=== PATIENT | male | born 1940 | race Caucasian/White ===

== ENCOUNTER 2017-09-14 09:39 | Emergency (ER) | payer MEDICARE, OTHER ==
--- NOTE | 2017-09-14 10:48 | EDM.PDOC ---
ED HPI GENERAL MEDICAL PROBLEM - General Chief Complaint: Respiratory Problem Stated Complaint: SOB/ISSUES SLEEPING Time Seen by Provider: 09/14/17 10:02 Source of Information: Reports: Patient, Family History Limitations: Reports: No Limitations - History of Present Illness INITIAL COMMENTS - FREE TEXT/NARRATIVE: This patient and his are here with a couple of complaints. The patient says that he occasionally gets a little bit of shortness of breath with exertion but otherwise he's okay. He is able to sleep supine and rarely has any kind of swelling in his legs. He does get up at night 5-6 times to urinate and says he usually goes at least a half a cup or better each time. He feels like he empties his bladder okay he denies any edema. There is no burning on urination. He does take tamsulosin. He has a implanted defibrillator. His says that at night when he sleeping he breathes funny. She said it's like he gas several times and then seems to take a full breath afterwards. He sleeps with his mouth open a little bit and this causes him to drool so he actually has a washcloth he keeps coming like at the corner of his mouth to keep from drooling. He had a sleep study along time ago and then was on some kind of apnea machine or see Pap or something. She said that however just a change in his pillow habits resolved the problem. - Related Data Allergies Allergy/AdvReac Type Severity Reaction Status Date / Time clonidine Allergy Unknown Rash Verified 09/14/17 09:50 lisinopril Allergy Unknown Rash Verified 09/14/17 09:50 Home Meds: Home Meds Carvedilol [Coreg] 12.5 mg PO BID 12/22/13 [History] Simvastatin [Zocor] 10 mg PO BEDTIME 12/22/13 [History] Spironolactone [Aldactone] 25 mg PO DAILY 12/22/13 [History] Tamsulosin [Tamsulosin 24 Hr] 0.4 mg PO BEDTIME 12/22/13 [History] Warfarin [Coumadin] 2.5 mg PO DAILY 12/22/13 [History] hydrALAZINE [Apresoline] 10 mg PO DAILY 12/22/13 [History] metFORMIN [metFORMIN XR] 500 mg PO BEDTIME 12/22/13 [History] traMADol [Ultram] 50 mg PO Q8HR PRN 12/22/13 [History] Amiodarone [Pacerone] 200 mg PO DAILY 09/14/17 [History] Terbinafine HCl 250 mg PO DAILY 09/14/17 [History] Past Medical History HEENT History: Reports: Hard of Hearing, Impaired Vision Cardiovascular History: Reports: High Cholesterol, Hypertension, [place], Other (See Below) Other Cardiovascular History: IMplanted defibulator Genitourinary History: Reports: Urinary Incontinence, Other (See Below) Other Genitourinary History: frequency Musculoskeletal History: Reports: Arthritis, Fracture Other Musculoskeletal History: l tibia Endocrine/Metabolic History: Reports: Diabetes, Type II - Infectious Disease History Infectious Disease History: Reports: Chicken Pox, Measles, Mumps, Shingles - Past Surgical History HEENT Surgical History: Reports: Cataract Surgery Cardiovascular Surgical History: Reports: Coronary Artery Stent GI Surgical History: Reports: Colonoscopy Musculoskeletal Surgical History: Reports: Knee Replacement Social & Family History - Tobacco Use Smoking Status *Q: Former Smoker Years of Tobacco use: 30 Packs/Tins Daily: 1 Used Tobacco, but Quit: Yes Month/Year Tobacco Last Used: 2011 - Caffeine Use Caffeine Use: Reports: Coffee, Soda, Tea - Alcohol Use Days Per Week of Alcohol Use: 2 Number of Drinks Per Day: 2 Total Drinks Per Week: 4 - Recreational Drug Use Recreational Drug Use: No ED ROS GENERAL - Review of Systems Review Of Systems: ROS reveals no pertinent complaints other than HPI. ED EXAM, GENERAL - Physical Exam Exam: See Below Exam Limited By: No Limitations General Appearance: Alert, WD/WN, No Apparent Distress Eye Exam: Bilateral Eye: Normal Inspection Nose: Normal Inspection (He seems to breathe normally through the nose) Throat/Mouth: Normal Inspection Head: Atraumatic Neck: Normal Inspection Respiratory/Chest: Lungs Clear, Normal Breath Sounds Cardiovascular: Normal Peripheral Pulses, Regular Rate, Rhythm Extremities: No Pedal Edema Neurological: Alert, Oriented Psychiatric: Normal Affect Skin Exam: Warm, Dry Course - Vital Signs Last Recorded V/S: Last Vital Signs Temp 36.0 C 09/14/17 10:13 Pulse 71 09/14/17 10:13 Resp 16 09/14/17 10:13 BP 188/94 H 09/14/17 10:13 Pulse Ox 98 09/14/17 10:13 Departure - Departure Time of Disposition: 10:43 Disposition: Home, Self-Care 01 Condition: Fair Clinical Impression: Sleep disturbance, unspecified, Nocturia - Discharge Information Referrals: David Vigil MD [Primary Care Provider] - Additional Instructions: Your symptoms sound like they could be do to obstructive sleep apnea. Your need to sleep with your mouth open indicates that you may be having some difficulty breathing through your nose. This can cause enough obstruction to cause sleep apnea. For some people this can be alleviated using the nasal strips such as Breathe Right nasal strips. I recommend you give those a try. Your will know whether or not they will work. If that doesn't solve the problem then I recommend a sleep study. This scan of your bladder showed only 59 mL so it appears you're emptying the bladder normally.
== END 2017-09-14 11:08 | disposition home or self-care (01) ==
LOC: JP.ED 09:39
DX: G47.9 Sleep disorder, unspecified (principal); R35.1 Nocturia; I10 Essential (primary) hypertension; E78.00 Pure hypercholesterolemia, unspecified; I25.2 Old myocardial infarction; E11.9 Type 2 diabetes mellitus without complications; Z88.8 Allergy status to other drugs, medicaments and biological substances; Z79.899 Other long term (current) drug therapy; Z79.01 Long term (current) use of anticoagulants; Z79.84 Long term (current) use of oral hypoglycemic drugs; Z87.891 Personal history of nicotine dependence
CPT/HCPCS: 99282; 99285

== ENCOUNTER 2020-02-21 17:47 | Emergency (ER) | payer MEDICARE, OTHER ==
[2020-02-21] MEDS ORDERED: Sodium Chloride 0.9% 10 ML Syringe FLUSH PRN (17:59)
--- NOTE | 2020-02-21 18:38 | EDM.PDOC ---
ED HPI GENERAL MEDICAL PROBLEM - General Chief Complaint: General Stated Complaint: POSSIBLE STROKE Time Seen by Provider: 02/21/20 18:20 Source of Information: Reports: Patient, Family, Old Records, RN History Limitations: Reports: No Limitations - History of Present Illness INITIAL COMMENTS - FREE TEXT/NARRATIVE: 79 [facility] patient is brought in by his for weakness. He began to get weak a couple days ago, but it was not a significant issue until today. Has not shared this problem with his provider(s). Also occasionally sees Dr. Vigil. His mentions that he has had a couple of bouts of urinary incontinence today that is not normal for him. No fever, new pain, cough, SOB, dysuria, or change in bowels. Onset: Gradual Duration: Day(s):, Getting Worse Location: Reports: Generalized Quality: Reports: Other (no new pain reports) Severity: Moderate (weakness) Improves with: Reports: None Worsens with: Reports: Other (time) Context: Reports: Other (See HPI) Associated Symptoms: Reports: Other (urinary incontinence) Treatments [employer] MANAGER: Reports: Other (see below) (none) - Related Data Allergies Allergy/AdvReac Type Severity Reaction Status Date / Time clonidine Allergy Unknown Rash Verified 02/21/20 18:12 lisinopril Allergy Unknown Rash Verified 02/21/20 18:12 Home Meds: Home Meds Simvastatin [Zocor] 10 mg PO BEDTIME 12/22/13 [History] Spironolactone [Aldactone] 25 mg PO DAILY 12/22/13 [History] Tamsulosin [Tamsulosin 24 Hr] 0.4 mg PO BID 12/22/13 [History] Warfarin [Coumadin] 2.5 mg PO DAILY 12/22/13 [History] carvediloL [Coreg] 25 mg PO BID 12/22/13 [History] hydrALAZINE [Apresoline] 10 mg PO DAILY 12/22/13 [History] metFORMIN [metFORMIN XR] 500 mg PO DAILY 12/22/13 [History] Amiodarone [Pacerone] 200 mg PO BID 09/14/17 [History] Isosorbide Mononitrate [Imdur] 1 tab PO DAILY 02/21/20 [History] Past Medical History HEENT History: Reports: Hard of Hearing, Impaired Vision Cardiovascular History: Reports: High Cholesterol, Hypertension, [place], Other (See Below) Other Cardiovascular History: IMplanted defibulator Genitourinary History: Reports: Urinary Incontinence, Other (See Below) Other Genitourinary History: frequency Musculoskeletal History: Reports: Arthritis, Fracture Other Musculoskeletal History: l tibia Endocrine/Metabolic History: Reports: Diabetes, Type II - Infectious Disease History Infectious Disease History: Reports: Chicken Pox, Measles, Mumps, Shingles - Past Surgical History HEENT Surgical History: Reports: Cataract Surgery Cardiovascular Surgical History: Reports: Coronary Artery Stent GI Surgical History: Reports: Colonoscopy Musculoskeletal Surgical History: Reports: Knee Replacement Social & Family History - Tobacco Use Smoking Status *Q: Never Smoker - Caffeine Use Caffeine Use: Reports: Coffee, Soda, Tea ED ROS GENERAL - Review of Systems Review Of Systems: See Below Constitutional: Reports: Weakness (generalized) HEENT: Reports: No Symptoms Respiratory: Reports: No Symptoms Cardiovascular: Reports: No Symptoms Endocrine: Reports: No Symptoms GI/Abdominal: Reports: No Symptoms : Reports: Incontinence, Urgency. Denies: Dysuria Musculoskeletal: Reports: No Symptoms Skin: Reports: No Symptoms Neurological: Reports: No Symptoms ED EXAM, GENERAL - Physical Exam Exam: See Below Exam Limited By: No Limitations General Appearance: Alert, WD/WN, No Apparent Distress Eye Exam: Bilateral Eye: Conjunctival Injection, EOMI, PERRL Ears: Normal External Exam, Normal Canal, Hearing Grossly Normal, Normal TMs Ear Exam: Bilateral Ear: Auricle Normal, Canal Normal, TM normal Nose: Normal Inspection, No Blood Throat/Mouth: Normal Inspection, Normal Lips, Normal Oropharynx, Normal Voice, No Airway Compromise Head: Atraumatic, Normocephalic Neck: Normal Inspection Respiratory/Chest: No Respiratory Distress, Lungs Clear, Normal Breath Sounds, No Accessory Muscle Use Cardiovascular: Regular Rate, Rhythm. No: No Edema (trace pitting edema to both LE's below the knees(not new). ) GI/Abdominal: Normal Bowel Sounds, Soft, Non-Tender, No Distention, Other (rectal exam shows quite a bit of soft, brown stool in rectum. ) (Male) Exam: Other (no palpable bladder distention. ) Back Exam: Normal Inspection. No: CVA Tenderness (R), CVA Tenderness (L) Extremities: Normal Inspection, Normal Range of Motion, Non-Tender, No Pedal Edema Neurological: Alert, Oriented, CN II-XII Intact, Normal Cognition, No Motor/Sensory Deficits. No: Inattentive, Confused, Disoriented, Slow to Respond, Unresponsive, Abnormal Reflexes, Sensory/Motor Deficit Psychiatric: Normal Affect, Normal Mood Skin Exam: Warm, Dry, Intact, Normal Color, No Rash Course - Vital Signs Text/Narrative:: post-void bladder scan 132 ml Last Recorded V/S: Last Vital Signs Temp 36.7 C 02/21/20 18:20 Pulse 53 L 02/21/20 19:20 Resp 17 02/21/20 19:20 BP 140/60 02/21/20 19:20 Pulse Ox 90 L 02/21/20 18:20 - Orders/Labs/Meds Orders: Active Orders 24 hr Category Date Time Status Bladder Scan [RC] ASDIRECTED Care 02/21/20 18:24 Active Cardiac Monitoring [RC] .As Directed Care 02/21/20 17:58 Active Sodium Chloride 0.9% [Saline Flush] Med 02/21/20 17:59 Active 10 ml FLUSH ASDIRECTED PRN Saline Lock Insert [OM.PC] Routine Oth 02/21/20 17:59 Ordered Medication Orders Sodium Chloride (Saline Flush) 10 ml FLUSH ASDIRECTED PRN PRN Reason: Keep Vein Open Last Admin: 02/21/20 18:10 Dose: 10 ml Documented by: RANDELL Labs: Laboratory Tests 02/21/20 02/21/20 02/21/20 Range/Units 18:13 18:13 18:13 WBC 7.2 (4.5-11.0) K/uL RBC 3.51 L (4.30-5.90) M/uL Hgb 9.4 L D (12.0-15.0) g/dL Hct 31.2 L (40.0-54.0) % MCV 89 (80-98) fL MCH 27 (27-31) pg MCHC 30 L (32-36) % Plt Count 228 (150-400) K/uL PT 19.0 H (9.5-12.0) sec INR 1.76 H D (0.80-1.20) Sodium 140 (140-148) mmol/L Potassium 4.3 (3.6-5.2) mmol/L Chloride 105 (100-108) mmol/L Carbon Dioxide 24 (21-32) mmol/L Anion Gap 10.9 (5.0-14.0) mmol/L BUN 24 H (7-18) mg/dL Creatinine 1.4 H (0.8-1.3) mg/dL Est Cr Clr Drug Dosing 40.00 mL/min Estimated GFR (MDRD) 49 L (>60) Glucose 117 H (74-106) mg/dL Calcium 8.3 L (8.5-10.1) mg/dL Troponin I < 0.017 (0.000-0.056) ng/mL Urine Color (YELLOW) Urine Appearance (CLEAR) Urine pH (5.0-8.0) Ur Specific [place] (1.008-1.030) Urine Protein (NEGATIVE) mg/dL Urine Glucose (UA) (NEGATIVE) mg/dL Urine Ketones (NEGATIVE) mg/dL Urine Occult Blood (NEGATIVE) Urine Nitrite (NEGATIVE) Urine Bilirubin (NEGATIVE) Urine Urobilinogen (0.2-1.0) EU/dL Ur Leukocyte Esterase (NEGATIVE) Urine RBC (0-5) Urine WBC (0-5) Urine Bacteria 02/21/20 Range/Units 18:57 WBC (4.5-11.0) K/uL RBC (4.30-5.90) M/uL Hgb (12.0-15.0) g/dL Hct (40.0-54.0) % MCV (80-98) fL MCH (27-31) pg MCHC (32-36) % Plt Count (150-400) K/uL PT (9.5-12.0) sec INR (0.80-1.20) Sodium (140-148) mmol/L Potassium (3.6-5.2) mmol/L Chloride (100-108) mmol/L Carbon Dioxide (21-32) mmol/L Anion Gap (5.0-14.0) mmol/L BUN (7-18) mg/dL Creatinine (0.8-1.3) mg/dL Est Cr Clr Drug Dosing mL/min Estimated GFR (MDRD) (>60) Glucose (74-106) mg/dL Calcium (8.5-10.1) mg/dL Troponin I (0.000-0.056) ng/mL Urine Color Yellow (YELLOW) Urine Appearance Clear (CLEAR) Urine pH 6.0 (5.0-8.0) Ur Specific [place] 1.015 (1.008-1.030) Urine Protein Negative (NEGATIVE) mg/dL Urine Glucose (UA) Negative (NEGATIVE) mg/dL Urine Ketones Negative (NEGATIVE) mg/dL Urine Occult Blood Trace-intact H (NEGATIVE) Urine Nitrite Negative (NEGATIVE) Urine Bilirubin Negative (NEGATIVE) Urine Urobilinogen 0.2 (0.2-1.0) EU/dL Ur Leukocyte Esterase Negative (NEGATIVE) Urine RBC Not seen (0-5) Urine WBC Not seen (0-5) Urine Bacteria Not seen Meds: Medications Generic Name Dose Route Start Last Admin Trade Name Freq PRN Reason Stop Dose Admin Sodium Chloride 10 ml 02/21/20 17:59 02/21/20 18:10 Saline Flush FLUSH 10 ml ASDIRECTED PRN Administration Keep Vein Open Discontinued Medications Generic Name Dose Route Start Last Admin Trade Name Freq PRN Reason Stop Dose Admin Lactated Ringer's 1,000 mls @ 1,000 mls/hr 02/21/20 18:59 02/21/20 19:09 Ringers, Lactated IV 02/21/20 19:58 1,000 mls/hr BOLUS ONE Administration Warfarin Sodium 5 mg 02/21/20 19:05 02/21/20 19:14 Coumadin PO 02/21/20 19:06 5 mg ONETIME ONE Administration - Re-Assessments/Exams Free Text/Narrative Re-Assessment/Exam: 02/21/20 20:10 Feels better after IV fluids. Departure - Departure Time of Disposition: 20:14 Disposition: Home, Self-Care 01 Condition: Fair Clinical Impression: Subtherapeutic international normalized ratio (INR) Anemia Qualifiers: Anemia type: unspecified type Qualified Code(s): D64.9 - Anemia, unspecified - Discharge Information *PRESCRIPTION DRUG MONITORING PROGRAM REVIEWED*: No *COPY OF PRESCRIPTION DRUG MONITORING REPORT IN PATIENT ELSIE: No Referrals: David Vigil MD [Primary Care Provider] - Forms: ED Department Discharge Additional Instructions: Continue your usual medications. See Dr. Vigil or your [facility] to further work up your anemia. You had a post-void bladder scan of 132 ml today, this is more than ideal so you should also share this with your provider. Your INR today was too low at 1.7. Hopefully, our extra warfarin dose tonight will boost you enough until you are seen again in the clinic, hopefully late this week. Return as needed. There was no indication on today's exam of a stroke. Sepsis Event Note (ED) - Evaluation Sepsis Screening Result: No Definite Risk - Focused Exam Vital Signs: Vital Signs Temp Pulse Resp BP Pulse Ox 02/21/20 19:20 53 L 17 140/60 02/21/20 18:50 52 L 24 H 139/61 02/21/20 18:20 36.7 C 56 L 18 146/62 H 90 L 02/21/20 17:53 36.7 C 58 L 16 148/70 H 91 L - My Orders Last 24 Hours: My Active Orders 02/21/20 17:58 Cardiac Monitoring [RC] .As Directed 02/21/20 17:59 Sodium Chloride 0.9% [Saline Flush] 10 ml FLUSH ASDIRECTED PRN Saline Lock Insert [OM.PC] Routine 02/21/20 18:24 Bladder Scan [RC] ASDIRECTED - Assessment/Plan Last 24 Hours: My Active Orders 02/21/20 17:58 Cardiac Monitoring [RC] .As Directed 02/21/20 17:59 Sodium Chloride 0.9% [Saline Flush] 10 ml FLUSH ASDIRECTED PRN Saline Lock Insert [OM.PC] Routine 02/21/20 18:24 Bladder Scan [RC] ASDIRECTED
[2020-02-21] MEDS ORDERED: Lactated Ringers 1,000 ML IV ONE (18:59)
[2020-02-21] MEDS ORDERED: Warfarin 5 MG Tab PO ONE ×2 (19:03→19:05)
== END 2020-02-21 20:22 | disposition home or self-care (01) ==
LOC: JP.ED 17:47
DX: D64.9 Anemia, unspecified (principal); I10 Essential (primary) hypertension; E78.00 Pure hypercholesterolemia, unspecified; I25.2 Old myocardial infarction; E11.9 Type 2 diabetes mellitus without complications; Z88.8 Allergy status to other drugs, medicaments and biological substances; Z79.899 Other long term (current) drug therapy; Z79.01 Long term (current) use of anticoagulants
CPT/HCPCS: 36415; 51798; 80048; 81001; 82272; 84484; 85027; 85610; 96360; 99284; A9270; J7120

== ENCOUNTER 2020-04-02 11:41 | Emergency (ER) | payer OTHER ==
[2020-04-02] MEDS ORDERED: Acetaminophen 500 MG Tab PO ONE (13:10)
--- NOTE | 2020-04-02 13:14 | EDM.PDOC ---
ED HPI GENERAL MEDICAL PROBLEM - General Chief Complaint: Back Pain or Injury Stated Complaint: FELL, HURT RT SIDE BETWEEN RIBS AND BUTTOCKS Time Seen by Provider: 04/02/20 13:00 Source of Information: Reports: Patient, Family, RN Notes Reviewed History Limitations: Reports: No Limitations - History of Present Illness INITIAL COMMENTS - FREE TEXT/NARRATIVE: [place] presents today for complaints of right sided pain after falling in the shower yesterday morning. She states he was in the shower, lifted up his leg to put it on the shower bench and he slipped. He is not sure what he struck his right side on but he thinks it may have been the built in shower bench. [place] denies any LOC or other injuries. He states he slept off and on last night but not well. Use of a lidocaine patch helped slightly with his pain. He denies SOB, difficulty breathing, chest pain, fever, chills, nausea, or other concerns. GCS 15 Right Lower Back Pain Score (Numeric/FACES): 6 - Related Data Allergies Allergy/AdvReac Type Severity Reaction Status Date / Time clonidine Allergy Unknown Rash Verified 04/02/20 12:26 lisinopril Allergy Unknown Rash Verified 04/02/20 12:26 Home Meds: Home Meds Simvastatin [Zocor] 10 mg PO BEDTIME 12/22/13 [History] Tamsulosin [Tamsulosin 24 Hr] 0.4 mg PO BID 12/22/13 [History] carvediloL [Coreg] 6.25 mg PO BID 12/22/13 [History] hydrALAZINE [Apresoline] 10 mg PO DAILY 12/22/13 [History] metFORMIN [metFORMIN XR] 500 mg PO DAILY 12/22/13 [History] Amiodarone [Pacerone] 200 mg PO BID 09/14/17 [History] Isosorbide Mononitrate [Imdur] 1 tab PO DAILY 02/21/20 [History] Aspirin [Halfprin] 81 mg PO DAILY 04/02/20 [History] Ferrous Sulfate [Iron] 325 mg PO BID 04/02/20 [History] amLODIPine [Norvasc] 5 mg PO DAILY 04/02/20 [History] Past Medical History HEENT History: Reports: Hard of Hearing, Impaired Vision Cardiovascular History: Reports: High Cholesterol, Hypertension, ID, Other (See Below) Other Cardiovascular History: IMplanted defibulator Gastrointestinal History: Reports: Diverticulosis Genitourinary History: Reports: Urinary Incontinence, Other (See Below) Other Genitourinary History: frequency Musculoskeletal History: Reports: Arthritis, Fracture Other Musculoskeletal History: l tibia Endocrine/Metabolic History: Reports: Diabetes, Type II - Infectious Disease History Infectious Disease History: Reports: Chicken Pox, Measles, Mumps, Shingles - Past Surgical History Head Surgeries/Procedures: Reports: None HEENT Surgical History: Reports: Cataract Surgery Cardiovascular Surgical History: Reports: Coronary Artery Stent GI Surgical History: Reports: Colonoscopy, Hernia, Inguinal Male Surgical History: Reports: None Endocrine Surgical History: Reports: None Musculoskeletal Surgical History: Reports: Knee Replacement Dermatological Surgical History: Reports: None Social & Family History - Tobacco Use Tobacco Use Status *Q: Former Tobacco User Years of Tobacco use: 50 Packs/Tins Daily: 1 Used Tobacco, but Quit: Yes Month/Year Tobacco Last Used: 2016 - Caffeine Use Caffeine Use: Reports: Coffee, Soda, Tea - Recreational Drug Use Recreational Drug Use: No ED ROS GENERAL - Review of Systems Review Of Systems: See Below Constitutional: Reports: No Symptoms HEENT: Reports: No Symptoms Respiratory: Reports: Other (Pain to right anterior/lateral ribs, no cough, No SOB, No chest pain). Denies: Shortness of Breath, Wheezing, Cough, Sputum, Hemoptysis Cardiovascular: Reports: No Symptoms Endocrine: Reports: No Symptoms GI/Abdominal: Reports: No Symptoms : Reports: No Symptoms Musculoskeletal: Reports: Other (right hip pain) Skin: Reports: Bruising, Other (abrasion to right ribs) Neurological: Reports: No Symptoms Psychiatric: Reports: No Symptoms Hematologic/Lymphatic: Reports: No Symptoms Immunologic: Reports: No Symptoms ED EXAM,LOWER BACK PAIN/INJURY - Physical Exam Exam: See Below Exam Limited By: No Limitations General Appearance: Alert, WD/WN, Mild Distress, Other (Patient offered pain medication, requested acetaminophen.) Eye Exam: Bilateral Eye: EOMI, Normal Inspection, PERRL Ears: Normal External Exam, Normal Canal, Normal TMs, Hearing Loss Nose: Normal Inspection, Normal Mucosa, No Blood. No: Nasal Tenderness Throat/Mouth: Normal Inspection, Normal Lips, Normal Gums, Normal Oropharynx, Normal Voice, No Airway Compromise Head: Atraumatic, Normocephalic Neck: Normal Inspection, Supple, Non-Tender, Full Range of Motion. No: Lymphadenopathy (R), Lymphadenopathy (L) Respiratory/Chest: No Respiratory Distress, Lungs Clear, Normal Breath Sounds, No Accessory Muscle Use, Splinting (to right side). No: Crackles, Rales, Rhonchi, Wheezing, Stridor, Pleural Rub, Accessory Muscle Use, Retractions, Prolonged Expiration Cardiovascular: Normal Peripheral Pulses, Regular Rate, Rhythm, No Gallop, Systolic Murmur, Other (3+ edema bilateral lower extermities - patient states 10lb weight gain the last 2 weeks which started after he stopped use of spironolactone. ) GI/Abdominal: Normal Bowel Sounds, Soft, No Organomegaly, No Distention, No Mass, Pelvis Stable, Tender (to right lower pelvis/right hip) Back Exam: CVA Tenderness (R), Decreased Range of Motion (due to pain of right ribs, right hip). No: CVA Tenderness (L), Muscle Spasm Extremities: Normal Capillary Refill, Pedal Edema (3+ bilateral extremities from feet to knees.), Other (legs are of equal length). No: Joint Swelling, Astrid's Sign, Leg Pain, Increased Warmth, Redness Neurological: Alert, Normal Mood/Affect, Normal Dorsiflexion, Normal Plantar Flexion, Normal Gait, Normal Reflexes, No Motor/Sensory Deficits, Oriented x 3, Other (GCS 15) DTR - Lower Extremities: 2+: Knee (R), Knee (L) Psychiatric: Normal Affect, Normal Mood Skin Exam: Warm, Dry, Ecchymosis (right lower rib area, right flank, abrasion to right hip) Lymphatic: No Adenopathy Course - Vital Signs Last Recorded V/S: Last Vital Signs Temp 36.8 C 04/02/20 12:24 Pulse 56 L 04/02/20 12:24 Resp 17 04/02/20 12:24 BP 139/68 04/02/20 12:24 Pulse Ox 98 04/02/20 12:24 - Orders/Labs/Meds Labs: Laboratory Tests 04/02/20 04/02/20 04/02/20 Range/Units 13:18 13:18 14:15 WBC 5.8 (4.5-11.0) K/uL RBC 3.47 L (4.30-5.90) M/uL Hgb 10.1 L (12.0-15.0) g/dL Hct 34.1 L (40.0-54.0) % MCV 98 (80-98) fL MCH 29 (27-31) pg MCHC 30 L (32-36) % Plt Count 204 (150-400) K/uL Neut % (Auto) 66 (36-66) % Lymph % (Auto) 25 (24-44) % Rush % (Auto) 7 H (2-6) % Eos % (Auto) 2 (2-4) % Baso % (Auto) 1 (0-1) % Sodium 139 L (140-148) mmol/L Potassium 4.1 (3.6-5.2) mmol/L Chloride 106 (100-108) mmol/L Carbon Dioxide 27 (21-32) mmol/L Anion Gap 10.1 (5.0-14.0) mmol/L BUN 25 H (7-18) mg/dL Creatinine 1.4 H (0.8-1.3) mg/dL Est Cr Clr Drug Dosing 42.78 mL/min Estimated GFR (MDRD) 49 L (>60) Glucose 154 H (74-106) mg/dL Calcium 8.2 L (8.5-10.1) mg/dL Urine Color Yellow (YELLOW) Urine Appearance Clear (CLEAR) Urine pH 6.0 (5.0-8.0) Ur Specific [place] 1.025 (1.008-1.030) Urine Protein 30 H (NEGATIVE) mg/dL Urine Glucose (UA) 100 H (NEGATIVE) mg/dL Urine Ketones Negative (NEGATIVE) mg/dL Urine Occult Blood Negative (NEGATIVE) Urine Nitrite Negative (NEGATIVE) Urine Bilirubin Negative (NEGATIVE) Urine Urobilinogen 0.2 (0.2-1.0) EU/dL Ur Leukocyte Esterase Negative (NEGATIVE) Urine RBC 0-5 (0-5) Urine WBC Not seen (0-5) Ur Epithelial Cells Not seen Urine Bacteria Not seen Patient lab work and CT findings reviewed with Officer, patient and his family member. Rib fractures x 3. Patient offered hospital admission to assist with pain control [place] declines hospital admission. He will be provided IS to use every hour to help with deep breathing/prevent pneumonia. Education provided. Hydrocodone to assist with pain. Close follow up with provider. Meds: Medications Discontinued Medications Generic Name Dose Route Start Last Admin Trade Name Maria Esther PRN Reason Stop Dose Admin Acetaminophen 1,000 mg 04/02/20 13:10 04/02/20 13:21 Tylenol Extra Strength PO 04/02/20 13:11 1,000 mg ONETIME ONE Administration Furosemide 40 mg 04/02/20 14:45 04/02/20 14:58 Lasix PO 04/02/20 14:46 40 mg ONETIME ONE Administration - Radiology Interpretation Free Text/Narrative:: CT chest, abdomen and pelvis without contrast shows right anterior 4th, lateral 6th, 7th rib fractures. Noted on CT scan chest was 1.8 x 1.3cm slightly irregular pulmonary nodule medial right lower lobe - this needs follow up with your primary provider. Departure - Departure Time of Disposition: 14:45 Disposition: Home, Self-Care 01 Condition: Good Clinical Impression: Ribs, multiple fractures, Fall, Bilateral lower extremity edema - Discharge Information *PRESCRIPTION DRUG MONITORING PROGRAM REVIEWED*: No *COPY OF PRESCRIPTION DRUG MONITORING REPORT IN PATIENT ELSIE: No Instructions: Rib Fracture Referrals: David Vigil MD [Primary Care Provider] - Forms: ED Department Discharge Additional Instructions: You have been evaluated and treated for a fall with resulting rib fractures of right anterior 4th rib, lateral 6th rib and 7th rib. Note don CT scan chest was 1.8 x 1.3cm slightly irregular pulmonary nodule medial right lower lobe - this needs follow up with your primary provider. Bilateral lower leg edema 3+, furosemid 40mg by mouth administered in the emergency room x 1 dose. Follow up with Dr. Vigil for ongoing management of edema. Use IS (incentive spirometer) every hour while awake, deep breath and cough every hour while awake to prevent the development of pneumonia. Watch for a fever, shortness of breath and cough. If you develop any of these symptoms return to the emergency room. Follow up with Dr. Vigil in 3 days in the clinic for a recheck. If you cannot see Dr. Vigil then you must be seen by another provider to make sure you are doing okay. Take acetaminophen for pain as needed. If pain is not controlled then take hydrocodone as directed. Do not take acetaminophen with hydrocodone as there is acetaminophen in hydrocodone. Return to the emergency room for any shortness of breath, fever, chills, difficulty breathing or any other concerns. Sepsis Event Note (ED) - Evaluation Sepsis Screening Result: No Definite Risk - Focused Exam Vital Signs: Vital Signs Temp Pulse Resp BP Pulse Ox 04/02/20 12:24 36.8 C 56 L 17 139/68 98 04/02/20 12:20 36.8 C 56 L 17 139/68 98 - Assessment/Plan Assessment:: Fall Right anterior 4th, lateral 6th rib, and 7th rib fractures. Slightly irregular pulmonary nodule medial right lower lobe. Lower extremity edema - bilateral. Patient evaluated and treated for a fall with resulting rib fractures of right anterior 4th rib, lateral 6th rib and 7th rib. Noted on CT scan chest was 1.8 x 1.3cm slightly irregular pulmonary nodule medial right lower lobe - this needs follow up with your primary provider. Bilateral lower leg edema 3+, furosemide 40mg by mouth administered in the emergency room x 1 dose. Follow up with Dr. Vigil for ongoing management of edema. Patient offered hospital admission to assist with pain control [place] declines hospital admission. He will be provided IS to use every hour to help with deep breathing/prevent pneumonia. Education provided. Hydrocodone to assist with pain. Close follow up with provider. Plan: Patient evaluated and treated for a fall with resulting rib fractures of right anterior 4th rib, lateral 6th rib and 7th rib. Note don CT scan chest was 1.8 x 1.3cm slightly irregular pulmonary nodule medial right lower lobe - this needs follow up with your primary provider. Bilateral lower leg edema 3+, furosemide 40mg by mouth administered in the emergency room x 1 dose. Follow up with Dr. Vigil for ongoing management of edema. Use IS (incentive spirometer) every hour while awake, deep breath and cough every hour while awake to prevent the development of pneumonia. Watch for a fever, shortness of breath and cough. If you develop any of these symptoms return to the emergency room. Follow up with Dr. Vigil in 3 days in the clinic for a recheck. If you cannot see Dr. Vigil then you must be seen by another provider to make sure you are doing okay. Take acetaminophen for pain as needed. If pain is not controlled then take hydrocodone as directed. Do not take acetaminophen with hydrocodone as there is acetaminophen in hydrocodone. Return to the emergency room for any shortness of breath, fever, chills, difficulty breathing or any other concerns.
--- NOTE | 2020-04-02 14:13 | CRLCT ---
HISTORY: Fall, right hip pain. TECHNIQUE: Noncontrast CT of the right hip. COMPARISON: No prior. FINDINGS: There is no acute fracture involving the right acetabulum or right proximal femur. The right superior and inferior pubic rami are intact. There are degenerative changes of the right hip. No localized fluid collection or space-occupying hematoma about the right hip. Chest, abdomen and pelvis CT are reported separately. IMPRESSION: 1. No acute fracture. 2. Degenerative changes of the right hip. Please note that all CT scans at this facility use dose modulation, iterative reconstruction, and/or weight-based dosing when appropriate to reduce radiation dose to as low as reasonably achievable. Dictated by Cj Dacosta MD @ Apr 03 2020 8:40AM Signed by Dr. Cj Dacosta @ Apr 03 2020 8:44AM
--- NOTE | 2020-04-02 14:30 | CRLCT ---
HISTORY: Fall right lateral rib pain right flank pain. Noncontrast CT chest abdomen pelvis. Comparison no comparison studies are available. FINDINGS: Multiple bilateral thyroid nodules. Normal caliber thoracic aorta. Mildly prominent mediastinal hilar nodes. The heart is enlarged coronary artery calcification. No pericardial effusion. Bilateral tiny pleural effusions. Left granuloma. 1.8 x 1.3 cm slightly irregular pulmonary nodule medial right lower lobe series 3 image 61. Basilar atelectasis. Mild centrilobular emphysema. No pneumothorax. Right anterior lateral 4th , lateral 6th and 7th subacute rib fractures. Increased density in the gallbladder could be related to small stones and/or sludge. Spleen pancreas adrenal glands are unremarkable. Slight thickening of both adrenal glands. Low-density lesions in the right kidney incompletely assessed but may represent cysts. No hydronephrosis. Normal appendix. Prostate gland mildly enlarged. Urinary bladder is unremarkable. Abundant stool in the colon. There is diverticulosis. No free fluid or free air. No acute fracture. Impression: 1. Right anterior lateral 4th, lateral 6th and 7th ribs subacute rib fractures. 2. No acute findings in the chest abdomen pelvis. No free air or free fluid in the abdomen or pelvis. 3. Slightly irregular 1.8 x 1.3 centimeter pulmonary nodule medial right lower lobe suspicious for possible malignancy. Recommend pulmonary consultation and consideration for PET-CT. Please note that all CT scans at this facility use dose modulation, iterative reconstruction, and/or weight-based dosing when appropriate to reduce radiation dose to as low as reasonably achievable. Dictated by Katey Santiago MD @ Apr 02 2020 2:13PM Signed by Dr. Katey Santiago @ Apr 02 2020 2:29PM
[2020-04-02] MEDS ORDERED: Furosemide 40 MG Tab PO ONE (14:45)
== END 2020-04-02 15:26 | disposition home or self-care (01) ==
LOC: JP.ED 11:41
DX: S22.41XA Multiple fractures of ribs, right side, initial encounter for closed fracture (principal); R60.0 Localized edema; R91.1 Solitary pulmonary nodule; R10.2 Pelvic and perineal pain; M25.551 Pain in right hip; I10 Essential (primary) hypertension; I25.2 Old myocardial infarction; E78.00 Pure hypercholesterolemia, unspecified; E11.9 Type 2 diabetes mellitus without complications; Z95.5 Presence of coronary angioplasty implant and graft; Z88.8 Allergy status to other drugs, medicaments and biological substances; Z87.891 Personal history of nicotine dependence; Z79.82 Long term (current) use of aspirin; Z79.84 Long term (current) use of oral hypoglycemic drugs; Z79.899 Other long term (current) drug therapy; W18.2XXA Fall in (into) shower or empty bathtub, initial encounter
CPT/HCPCS: 36415; 71250; 73700; 74176; 80048; 81001; 85025; 99284; A9270

== ENCOUNTER 2020-05-28 12:00 | Inpatient (IN) | payer OTHER ==
[2020-05-28] MEDS ORDERED: Albuterol 0.083% 2.5 MG/3 ML Neb Soln NEB ONE (12:45)
[2020-05-28] MEDS ORDERED: Sodium Chloride 0.9% 10 ML Syringe FLUSH PRN ×2 (12:46→18:08)
[2020-05-28] MEDS ORDERED: Furosemide 40 MG/4 ML VIAL IVPUSH ONE ×2 (12:47→21:00)
--- NOTE | 2020-05-28 12:48 | EDM.PDOC ---
ED HPI GENERAL MEDICAL PROBLEM - General Chief Complaint: Respiratory Problem Stated Complaint: FALL Time Seen by Provider: 05/28/20 12:48 Source of Information: Reports: Patient History Limitations: Reports: No Limitations - History of Present Illness INITIAL COMMENTS - FREE TEXT/NARRATIVE: pt arrived with a history of a fall and a laceration on the small finger. This is a flap type laceration 1/2 inch in length. Onset: Gradual, Other (pt has been sob for the past 2 days. He tripped over a tv stand and ended up with a laceration of his small finger. ) Duration: Hour(s): Location: Reports: Upper Extremity, Left Associated Symptoms: Reports: Cough, Shortness of Breath, Weakness - Related Data Allergies Allergy/AdvReac Type Severity Reaction Status Date / Time clonidine Allergy Unknown Rash Verified 05/28/20 12:42 lisinopril Allergy Unknown Rash Verified 05/28/20 12:42 Home Meds: Home Meds Simvastatin [Zocor] 10 mg PO BEDTIME 12/22/13 [History] Tamsulosin [Tamsulosin 24 Hr] 0.4 mg PO BID 12/22/13 [History] carvediloL [Coreg] 6.25 mg PO BID 12/22/13 [History] hydrALAZINE [Apresoline] 10 mg PO DAILY 12/22/13 [History] metFORMIN [metFORMIN XR] 500 mg PO DAILY 12/22/13 [History] Amiodarone [Pacerone] 200 mg PO BID 09/14/17 [History] Isosorbide Mononitrate [Imdur] 1 tab PO DAILY 02/21/20 [History] Aspirin [Halfprin] 81 mg PO DAILY 04/02/20 [History] Ferrous Sulfate [Iron] 325 mg PO BID 04/02/20 [History] amLODIPine [Norvasc] 5 mg PO DAILY 04/02/20 [History] Spironolactone [Aldactone] 12.5 mg PO DAILY 05/28/20 [History] Past Medical History HEENT History: Reports: Hard of Hearing, Impaired Vision Cardiovascular History: Reports: High Cholesterol, Hypertension, RI, Other (See Below) Other Cardiovascular History: IMplanted defibulator Gastrointestinal History: Reports: Diverticulosis Genitourinary History: Reports: Urinary Incontinence, Other (See Below) Other Genitourinary History: frequency Musculoskeletal History: Reports: Arthritis, Fracture Other Musculoskeletal History: l tibia Endocrine/Metabolic History: Reports: Diabetes, Type II - Infectious Disease History Infectious Disease History: Reports: Chicken Pox, Measles, Mumps, Shingles - Past Surgical History Head Surgeries/Procedures: Reports: None HEENT Surgical History: Reports: Cataract Surgery Cardiovascular Surgical History: Reports: Coronary Artery Stent GI Surgical History: Reports: Colonoscopy, Hernia, Inguinal Male Surgical History: Reports: None Endocrine Surgical History: Reports: None Musculoskeletal Surgical History: Reports: Knee Replacement Dermatological Surgical History: Reports: None Social & Family History - Caffeine Use Caffeine Use: Reports: Coffee, Soda, Tea ED ROS GENERAL - Review of Systems Review Of Systems: See Below Constitutional: Reports: No Symptoms HEENT: Reports: No Symptoms Respiratory: Reports: Shortness of Breath Cardiovascular: Reports: Dyspnea on Exertion, Edema Endocrine: Reports: No Symptoms GI/Abdominal: Reports: No Symptoms : Reports: No Symptoms Musculoskeletal: Reports: No Symptoms Skin: Reports: No Symptoms ED EXAM, GENERAL - Physical Exam Exam: See Below Free Text/Narrative:: pt arrived feeling sob. He fell at home and was found on the floor. He has a flap type laceration of the small finger on the dorsal aspect. Exam Limited By: No Limitations General Appearance: Alert, Anxious, Moderate Distress Ears: Normal TMs Nose: Normal Inspection Throat/Mouth: Normal Inspection Head: Atraumatic Neck: Normal Inspection Respiratory/Chest: Decreased Breath Sounds, Rales, Wheezing Cardiovascular: Regular Rate, Rhythm, Irregularly Irregular, Other (pt has a history of atrial fib. ) GI/Abdominal: Soft, Non-Tender (Male) Exam: Deferred Rectal (Males) Exam: Deferred Back Exam: Normal Inspection Extremities: Pedal Edema Neurological: Alert, Oriented, Normal Cognition Psychiatric: Anxious Course - Vital Signs Last Recorded V/S: Last Vital Signs Temp 36.3 C 05/28/20 12:53 Pulse 72 05/28/20 17:24 Resp 22 H 05/28/20 17:24 BP 157/85 H 05/28/20 17:24 Pulse Ox 89 L 05/28/20 17:24 - Orders/Labs/Meds Orders: Active Orders 24 hr Category Date Time Status EKG Documentation Completion [RC] ASDIRECTED Care 05/28/20 12:48 Active RT Aerosol Therapy [RC] ASDIRECTED Care 12/13/20 12:45 Active Chest 1V Frontal [CR] Stat Exams 05/28/20 12:46 Taken Sodium Chloride 0.9% [Saline Flush] Med 05/28/20 12:46 Active 10 ml FLUSH ASDIRECTED PRN Saline Lock Insert [OM.PC] Routine Oth 05/28/20 12:46 Ordered EKG 12 Lead [EK] Routine Ther 05/28/20 12:48 Ordered Medication Orders Sodium Chloride (Saline Flush) 10 ml FLUSH ASDIRECTED PRN PRN Reason: Keep Vein Open Last Admin: 05/28/20 13:20 Dose: 10 ml Documented by: RANDELL Labs: Laboratory Tests 05/28/20 05/28/20 05/28/20 Range/Units 12:45 13:00 13:12 WBC 8.8 (4.5-11.0) K/uL RBC 4.71 (4.30-5.90) M/uL Hgb 13.7 D (12.0-15.0) g/dL Hct 44.0 (40.0-54.0) % POC Hct 41 (36-48) % MCV 93 (80-98) fL MCH 29 (27-31) pg MCHC 31 L (32-36) % Plt Count 190 (150-400) K/uL Neut % (Auto) 86 H (36-66) % Lymph % (Auto) 9 L (24-44) % Bowie % (Auto) 5 (2-6) % Eos % (Auto) 0 L (2-4) % Baso % (Auto) 0 (0-1) % Sample Site Rt radial POC ABG pH 7.34 L (7.35-7.45) POC ABG pCO2 36.9 (35-45) mmHG POC ABG pO2 49 L (80-105) mmHg POC ABG HCO3 19.9 L (22.0-26.0) mmol/L POC ABG Total CO2 21 L (23-27) mmol/L POC ABG O2 Sat 82 L (95-98) % POC ABG Base Excess -6 L (-2-3) mmol/L Basim Test Pass O2 Delivery Device POC O2 Flow Rate 4 POC Sodium 139 L (140-148) mmol/L Sodium (140-148) mmol/L POC Potassium 4.2 (3.5-4.9) mmol/L Potassium (3.6-5.2) mmol/L Chloride (100-108) mmol/L Carbon Dioxide (21-32) mmol/L Anion Gap (5.0-14.0) mmol/L BUN (7-18) mg/dL Creatinine (0.8-1.3) mg/dL Est Cr Clr Drug Dosing mL/min Estimated GFR (MDRD) (>60) Glucose (74-106) mg/dL Calcium (8.5-10.1) mg/dL POC WB Ioniz Calcium 1.25 (1.12-1.32) mmol/L Total Bilirubin (0.2-1.0) mg/dL AST (15-37) U/L ALT (12-78) U/L Alkaline Phosphatase (46-116) U/L NT-Pro-B Natriuret Pep (5-450) pg/mL Total Protein (6.4-8.2) g/dL Albumin (3.4-5.0) g/dL Globulin (2.3-3.5) g/dL Albumin/Globulin Ratio (1.2-2.2) Urine Color Yellow (YELLOW) Urine Appearance Clear (CLEAR) Urine pH 5.5 (5.0-8.0) Ur Specific [place] >= 1.030 (1.008-1.030) Urine Protein 100 H (NEGATIVE) mg/dL Urine Glucose (UA) 250 H (NEGATIVE) mg/dL Urine Ketones Negative (NEGATIVE) mg/dL Urine Occult Blood Trace-intact H (NEGATIVE) Urine Nitrite Negative (NEGATIVE) Urine Bilirubin Negative (NEGATIVE) Urine Urobilinogen 0.2 (0.2-1.0) EU/dL Ur Leukocyte Esterase Negative (NEGATIVE) Urine RBC 0-5 (0-5) Urine WBC Not seen (0-5) Ur Epithelial Cells Not seen Urine Bacteria Not seen 05/28/20 05/28/20 Range/Units 13:12 13:12 WBC (4.5-11.0) K/uL RBC (4.30-5.90) M/uL Hgb (12.0-15.0) g/dL Hct (40.0-54.0) % POC Hct (36-48) % MCV (80-98) fL MCH (27-31) pg MCHC (32-36) % Plt Count (150-400) K/uL Neut % (Auto) (36-66) % Lymph % (Auto) (24-44) % Bowie % (Auto) (2-6) % Eos % (Auto) (2-4) % Baso % (Auto) (0-1) % Sample Site POC ABG pH (7.35-7.45) POC ABG pCO2 (35-45) mmHG POC ABG pO2 (80-105) mmHg POC ABG HCO3 (22.0-26.0) mmol/L POC ABG Total CO2 (23-27) mmol/L POC ABG O2 Sat (95-98) % POC ABG Base Excess (-2-3) mmol/L Basim Test O2 Delivery Device POC O2 Flow Rate POC Sodium (140-148) mmol/L Sodium 140 (140-148) mmol/L POC Potassium (3.5-4.9) mmol/L Potassium 4.5 (3.6-5.2) mmol/L Chloride 104 (100-108) mmol/L Carbon Dioxide 23 (21-32) mmol/L Anion Gap 13.3 (5.0-14.0) mmol/L BUN 37 H (7-18) mg/dL Creatinine 1.6 H (0.8-1.3) mg/dL Est Cr Clr Drug Dosing 37.44 mL/min Estimated GFR (MDRD) 42 L (>60) Glucose 229 H (74-106) mg/dL Calcium 8.7 (8.5-10.1) mg/dL POC WB Ioniz Calcium (1.12-1.32) mmol/L Total Bilirubin 0.4 (0.2-1.0) mg/dL AST 45 H D (15-37) U/L ALT 69 D (12-78) U/L Alkaline Phosphatase 81 (46-116) U/L NT-Pro-B Natriuret Pep 5284 H (5-450) pg/mL Total Protein 7.1 (6.4-8.2) g/dL Albumin 3.6 (3.4-5.0) g/dL Globulin 3.5 (2.3-3.5) g/dL Albumin/Globulin Ratio 1.0 L (1.2-2.2) Urine Color (YELLOW) Urine Appearance (CLEAR) Urine pH (5.0-8.0) Ur Specific [place] (1.008-1.030) Urine Protein (NEGATIVE) mg/dL Urine Glucose (UA) (NEGATIVE) mg/dL Urine Ketones (NEGATIVE) mg/dL Urine Occult Blood (NEGATIVE) Urine Nitrite (NEGATIVE) Urine Bilirubin (NEGATIVE) Urine Urobilinogen (0.2-1.0) EU/dL Ur Leukocyte Esterase (NEGATIVE) Urine RBC (0-5) Urine WBC (0-5) Ur Epithelial Cells Urine Bacteria Meds: Medications Generic Name Dose Route Start Last Admin Trade Name Freq PRN Reason Stop Dose Admin Sodium Chloride 10 ml 05/28/20 12:46 05/28/20 13:20 Saline Flush FLUSH 10 ml ASDIRECTED PRN Administration Keep Vein Open Discontinued Medications Generic Name Dose Route Start Last Admin Trade Name Freq PRN Reason Stop Dose Admin Albuterol 2.5 mg 05/28/20 12:45 05/28/20 13:20 Proventil Neb Soln NEB 05/28/20 12:46 2.5 mg ONETIME ONE Administration Bacitracin 1 dose 05/28/20 14:28 05/28/20 14:43 Bacitracin Oint 1 Gm TOP 05/28/20 14:29 1 dose ONETIME ONE Administration Furosemide 60 mg 05/28/20 12:47 05/28/20 13:20 Lasix IVPUSH 05/28/20 12:48 60 mg ONETIME ONE Administration Lidocaine HCl 5 ml 05/28/20 14:27 05/28/20 14:43 Xylocaine-Mpf 1% INJECT 05/28/20 14:28 5 ml ONETIME ONE Administration - Re-Assessments/Exams Free Text/Narrative Re-Assessment/Exam: 05/28/20 15:22 pt was found to have low o2 sats. He was placed on o2 and needed 5 liters to keep him in the low 80s. He has a history of chf. He was given 60mg of lasix and has put out 700 cc of fluid. 05/28/20 15:24 He is more comfortable with his breathing but his sats are still in the low 80s. 05/28/20 17:33 pt was put on bipap for the next 1.5 hours. He did do well and his sats were in the low 90s. He did end up putting out a total of 1500 cc of fluid. He is much more comfortable with his breathing, Departure - Departure Time of Disposition: 17:34 Disposition: Admitted As Inpatient 66 Condition: Fair Clinical Impression: CHF (congestive heart failure), Laceration, Hypoxia - Discharge Information Referrals: David Vigil MD [Primary Care Provider] - Forms: ED Department Discharge Care Plan Goals: keep wound dry, no further ointments, suture removal in 7-[address] Govea. Sepsis Event Note (ED) - Focused Exam Vital Signs: Vital Signs Temp Pulse Resp BP Pulse Ox 05/28/20 17:24 72 22 H 157/85 H 89 L 05/28/20 16:55 75 15 152/86 H 96 05/28/20 15:58 72 14 145/69 H 95 05/28/20 15:14 73 18 144/84 H 85 L 05/28/20 14:29 77 139/64 83 L 05/28/20 13:35 74 17 97/36 L 80 L 05/28/20 13:14 78 19 145/84 H 86 L 05/28/20 12:53 36.3 C 80 18 164/94 H 81 L 05/28/20 12:35 36.3 C 80 24 H 164/94 H 81 L - My Orders Last 24 Hours: My Active Orders 05/28/20 12:45 RT Aerosol Therapy [RC] ASDIRECTED 05/28/20 12:46 Chest 1V Frontal [CR] Stat Sodium Chloride 0.9% [Saline Flush] 10 ml FLUSH ASDIRECTED PRN Saline Lock Insert [OM.PC] Routine 05/28/20 12:48 EKG Documentation Completion [RC] ASDIRECTED EKG 12 Lead [EK] Routine - Assessment/Plan Last 24 Hours: My Active Orders 05/28/20 12:45 RT Aerosol Therapy [RC] ASDIRECTED 05/28/20 12:46 Chest 1V Frontal [CR] Stat Sodium Chloride 0.9% [Saline Flush] 10 ml FLUSH ASDIRECTED PRN Saline Lock Insert [OM.PC] Routine 05/28/20 12:48 EKG Documentation Completion [RC] ASDIRECTED EKG 12 Lead [EK] Routine
[2020-05-28] MEDS ORDERED: Bacitracin Oint 1 GM U/D Packet TOP ONE (14:28)
--- NOTE | 2020-05-28 18:02 | PCM.HP.2 ---
H&P History of Present Illness - General Date of Service: 05/28/20 Admit Problem/Dx: Admission Diagnosis/Problem Admission Diagnosis/Problem CHF, Congestive heart failure Source of Information: Patient, Family, Provider, RN Notes Reviewed History Limitations: Reports: No Limitations - History of Present Illness Initial Comments - Free Text/Narative: Mr. Atkins is a 79-year-old gentleman who was admitted through the emergency department with progressive weakness and shortness of breath secondary to congestive heart failure exacerbation. He has a known and longstanding history of cardiac disease including coronary artery disease and congestive heart failure. He is status post previous angioplasty with stent placements. He has known and longstanding congestive heart failure and he is status post placement of an implantable defibrillator. Over the last 3 months has had difficulty with increase in peripheral edema. Over the last week has had progressive weakness with increased shortness of breath, much worse over the last 16 hours prior to admission. He fell early this morning and was unable to get up, family found him on the floor after a few hours. The emergency department his BNP is significantly elevated and chest x-ray shows evidence of bilateral pulmonary edema. He has been hypoxic with oxygen saturation in the low 80s despite supplemental oxygen via nasal cannula. Oxygenation has improved but not normalized after he received IV furosemide in the emergency department. He has been placed on noninvasive positive pressure ventilation with good improvement and normalization of oxygenation. Denies recent symptoms of chest pain or pressure and denies PND or orthopnea. No recent fevers chills sweats or productive cough. - Related Data Allergies/Adverse Reactions: Allergies Allergy/AdvReac Type Severity Reaction Status Date / Time clonidine Allergy Unknown Rash Verified 05/28/20 12:42 lisinopril Allergy Unknown Rash Verified 05/28/20 12:42 Home Medications: Home Meds Simvastatin [Zocor] 10 mg PO BEDTIME 12/22/13 [History] Tamsulosin [Tamsulosin 24 Hr] 0.4 mg PO BID 12/22/13 [History] carvediloL [Coreg] 6.25 mg PO BID 12/22/13 [History] hydrALAZINE [Apresoline] 10 mg PO DAILY 12/22/13 [History] metFORMIN [metFORMIN XR] 500 mg PO DAILY 12/22/13 [History] Amiodarone [Pacerone] 200 mg PO BID 09/14/17 [History] Isosorbide Mononitrate [Imdur] 1 tab PO DAILY 02/21/20 [History] Aspirin [Halfprin] 81 mg PO DAILY 04/02/20 [History] Ferrous Sulfate [Iron] 325 mg PO BID 04/02/20 [History] amLODIPine [Norvasc] 5 mg PO DAILY 04/02/20 [History] Spironolactone [Aldactone] 12.5 mg PO DAILY 05/28/20 [History] Past Medical History HEENT History: Reports: Hard of Hearing, Impaired Vision Cardiovascular History: Reports: High Cholesterol, Hypertension, DC, Other (See Below) Other Cardiovascular History: IMplanted defibulator Gastrointestinal History: Reports: Diverticulosis Genitourinary History: Reports: Urinary Incontinence, Other (See Below) Other Genitourinary History: frequency Musculoskeletal History: Reports: Arthritis, Fracture Other Musculoskeletal History: l tibia Endocrine/Metabolic History: Reports: Diabetes, Type II - Infectious Disease History Infectious Disease History: Reports: Chicken Pox, Measles, Mumps, Shingles - Past Surgical History Head Surgeries/Procedures: Reports: None HEENT Surgical History: Reports: Cataract Surgery Cardiovascular Surgical History: Reports: Coronary Artery Stent GI Surgical History: Reports: Colonoscopy, Hernia, Inguinal Male Surgical History: Reports: None Endocrine Surgical History: Reports: None Musculoskeletal Surgical History: Reports: Knee Replacement Dermatological Surgical History: Reports: None Social & Family History - Tobacco Use Tobacco Use Status *Q: Never Tobacco User - Caffeine Use Caffeine Use: Reports: Coffee, Soda, Tea H&P Review of Systems - Review of Systems: Review Of Systems: See Below General: Reports: Malaise, Weakness, Fatigue, Decreased Appetite. Denies: Fever, Chills HEENT: Reports: No Symptoms Pulmonary: Reports: Shortness of Breath. Denies: Wheezing, Pleuritic Chest Pain, Cough, Sputum, Hemoptysis Cardiovascular: Reports: Dyspnea on Exertion, Edema. Denies: Chest Pain, Palpitations, Orthopnea, PND, Lightheadedness Gastrointestinal: Reports: No Symptoms Genitourinary: Reports: No Symptoms Musculoskeletal: Reports: No Symptoms Skin: Reports: No Symptoms Psychiatric: Reports: No Symptoms Neurological: Reports: No Symptoms Hematologic/Lymphatic: Reports: No Symptoms Immunologic: Reports: No Symptoms Exam - Exam Exam: See Below - Vital Signs Vital Signs: Last Vital Signs Temp 97.3 F 05/28/20 12:53 Pulse 72 12/13/20 17:24 Resp 22 H 05/28/20 17:24 BP 157/85 H 05/28/20 17:24 Pulse Ox 89 L 05/28/20 17:24 Weight: 190 lb - Exam Quality Assessment: Supplemental Oxygen, DVT Prophylaxis General: Alert, Oriented, Cooperative, Moderate Distress HEENT: Conjunctiva Clear, Hearing Intact, Mucosa Moist & [place], Normal Nasal Septum, Posterior Pharynx Clear, Pupils Equal Neck: Supple, Trachea Midline, +2 Carotid Pulse wo Bruit Lungs: Decreased Breath Sounds, Rales. No: Crackles, Rhonchi, Wheezing Cardiovascular: Regular Rate, Regular Rhythm, Normal S1, Normal S2, Systolic Murmur. No: Diastolic Murmur GI/Abdominal Exam: Soft, Non-Tender, No Organomegaly, No Distention Extremities: Non-Tender, Pedal Edema Skin: Warm, Dry Neurological: Cranial Nerves Intact, Strength Equal Bilateral, Normal Speech, Normal Tone, Sensation Intact. No: Focal Deficit Neuro Extensive - Mental Status: Alert, Oriented x3, Normal Mood/Affect, Normal Cognition, Memory Intact - Patient Data Lab Results Last 24 hrs: Laboratory Results - last 24 hr 05/28/20 05/28/20 05/28/20 Range/Units 12:45 13:00 13:12 WBC 8.8 (4.5-11.0) K/uL RBC 4.71 (4.30-5.90) M/uL Hgb 13.7 D (12.0-15.0) g/dL Hct 44.0 (40.0-54.0) % POC Hct 41 (36-48) % MCV 93 (80-98) fL MCH 29 (27-31) pg MCHC 31 L (32-36) % Plt Count 190 (150-400) K/uL Neut % (Auto) 86 H (36-66) % Lymph % (Auto) 9 L (24-44) % [place] % (Auto) 5 (2-6) % Eos % (Auto) 0 L (2-4) % Baso % (Auto) 0 (0-1) % Sample Site Rt radial POC ABG pH 7.34 L (7.35-7.45) POC ABG pCO2 36.9 (35-45) mmHG POC ABG pO2 49 L (80-105) mmHg POC ABG HCO3 19.9 L (22.0-26.0) mmol/L POC ABG Total CO2 21 L (23-27) mmol/L POC ABG O2 Sat 82 L (95-98) % POC ABG Base Excess -6 L (-2-3) mmol/L Basim Test Pass O2 Delivery Device POC O2 Flow Rate 4 POC Sodium 139 L (140-148) mmol/L Sodium (140-148) mmol/L POC Potassium 4.2 (3.5-4.9) mmol/L Potassium (3.6-5.2) mmol/L Chloride (100-108) mmol/L Carbon Dioxide (21-32) mmol/L Anion Gap (5.0-14.0) mmol/L BUN (7-18) mg/dL Creatinine (0.8-1.3) mg/dL Est Cr Clr Drug Dosing mL/min Estimated GFR (MDRD) (>60) Glucose (74-106) mg/dL Calcium (8.5-10.1) mg/dL POC WB Ioniz Calcium 1.25 (1.12-1.32) mmol/L Total Bilirubin (0.2-1.0) mg/dL AST (15-37) U/L ALT (12-78) U/L Alkaline Phosphatase (46-116) U/L NT-Pro-B Natriuret Pep (5-450) pg/mL Total Protein (6.4-8.2) g/dL Albumin (3.4-5.0) g/dL Globulin (2.3-3.5) g/dL Albumin/Globulin Ratio (1.2-2.2) Urine Color Yellow (YELLOW) Urine Appearance Clear (CLEAR) Urine pH 5.5 (5.0-8.0) Ur Specific [place] >= 1.030 (1.008-1.030) Urine Protein 100 H (NEGATIVE) mg/dL Urine Glucose (UA) 250 H (NEGATIVE) mg/dL Urine Ketones Negative (NEGATIVE) mg/dL Urine Occult Blood Trace-intact H (NEGATIVE) Urine Nitrite Negative (NEGATIVE) Urine Bilirubin Negative (NEGATIVE) Urine Urobilinogen 0.2 (0.2-1.0) EU/dL Ur Leukocyte Esterase Negative (NEGATIVE) Urine RBC 0-5 (0-5) Urine WBC Not seen (0-5) Ur Epithelial Cells Not seen Urine Bacteria Not seen 05/28/20 05/28/20 Range/Units 13:12 13:12 WBC (4.5-11.0) K/uL RBC (4.30-5.90) M/uL Hgb (12.0-15.0) g/dL Hct (40.0-54.0) % POC Hct (36-48) % MCV (80-98) fL MCH (27-31) pg MCHC (32-36) % Plt Count (150-400) K/uL Neut % (Auto) (36-66) % Lymph % (Auto) (24-44) % [place] % (Auto) (2-6) % Eos % (Auto) (2-4) % Baso % (Auto) (0-1) % Sample Site POC ABG pH (7.35-7.45) POC ABG pCO2 (35-45) mmHG POC ABG pO2 (80-105) mmHg POC ABG HCO3 (22.0-26.0) mmol/L POC ABG Total CO2 (23-27) mmol/L POC ABG O2 Sat (95-98) % POC ABG Base Excess (-2-3) mmol/L Basim Test O2 Delivery Device POC O2 Flow Rate POC Sodium (140-148) mmol/L Sodium 140 (140-148) mmol/L POC Potassium (3.5-4.9) mmol/L Potassium 4.5 (3.6-5.2) mmol/L Chloride 104 (100-108) mmol/L Carbon Dioxide 23 (21-32) mmol/L Anion Gap 13.3 (5.0-14.0) mmol/L BUN 37 H (7-18) mg/dL Creatinine 1.6 H (0.8-1.3) mg/dL Est Cr Clr Drug Dosing 37.44 mL/min Estimated GFR (MDRD) 42 L (>60) Glucose 229 H (74-106) mg/dL Calcium 8.7 (8.5-10.1) mg/dL POC WB Ioniz Calcium (1.12-1.32) mmol/L Total Bilirubin 0.4 (0.2-1.0) mg/dL AST 45 H D (15-37) U/L ALT 69 D (12-78) U/L Alkaline Phosphatase 81 (46-116) U/L NT-Pro-B Natriuret Pep 5284 H (5-450) pg/mL Total Protein 7.1 (6.4-8.2) g/dL Albumin 3.6 (3.4-5.0) g/dL Globulin 3.5 (2.3-3.5) g/dL Albumin/Globulin Ratio 1.0 L (1.2-2.2) Urine Color (YELLOW) Urine Appearance (CLEAR) Urine pH (5.0-8.0) Ur Specific [place] (1.008-1.030) Urine Protein (NEGATIVE) mg/dL Urine Glucose (UA) (NEGATIVE) mg/dL Urine Ketones (NEGATIVE) mg/dL Urine Occult Blood (NEGATIVE) Urine Nitrite (NEGATIVE) Urine Bilirubin (NEGATIVE) Urine Urobilinogen (0.2-1.0) EU/dL Ur Leukocyte Esterase (NEGATIVE) Urine RBC (0-5) Urine WBC (0-5) Ur Epithelial Cells Urine Bacteria Result Diagrams: 05/28/20 13:12 05/28/20 13:12 Sepsis Event Note - Evaluation Sepsis Screening Result: No Definite Risk - Focused Exam Vital Signs: Vital Signs Temp Pulse Resp BP Pulse Ox 05/28/20 17:24 72 22 H 157/85 H 89 L 05/28/20 16:55 75 15 152/86 H 96 05/28/20 15:58 72 14 145/69 H 95 05/28/20 15:14 73 18 144/84 H 85 L 05/28/20 14:29 77 139/64 83 L 05/28/20 13:35 74 17 97/36 L 80 L 05/28/20 13:14 78 19 145/84 H 86 L 05/28/20 12:53 97.3 F 80 18 164/94 H 81 L 05/28/20 12:35 97.3 F 80 24 H 164/94 H 81 L *Q Meaningful Use (ADM) - VTE Risk Assess *Q Each Risk Factor Represents 1 Point: Swollen Legs, Current, Obesity ( BMI > 25 kg/m2), Congestive heart failure (CHF) Total Score 1 Point Risk Factors: 3 Each Risk Factor Represents 2 Points: None Total Score 2 Point Risk Factors: 0 Each Risk Factor Represents 3 Points: Age 75 Years or Greater Total Score 3 Point Risk Factors: 3 Each Risk Factor Represents 5 Points: None Total Score 5 Point Risk Factors: 0 Venous Thromboembolism Risk Factor Score *Q: 6 Problem List Initiated/Reviewed/Updated: Yes Orders Last 24hrs: Active Orders 24 hr Category Date Time Status Patient Status Manage Transfer [TRANSFER] Routine ADT 05/28/20 17:50 Ordered EKG Documentation Completion [RC] ASDIRECTED Care 05/28/20 12:48 Active RT Aerosol Therapy [RC] ASDIRECTED Care 05/28/20 12:45 Active Chest 1V Frontal [CR] Stat Exams 05/28/20 12:46 Taken CORONAVIRUS COVID-19 RAPID [MOLEC] Routine Lab 05/28/20 17:54 Received Sodium Chloride 0.9% [Saline Flush] Med 05/28/20 12:46 Active 10 ml FLUSH ASDIRECTED PRN Saline Lock Insert [OM.PC] Routine Oth 05/28/20 12:46 Ordered Resuscitation Status Routine Resus Stat 05/28/20 17:53 Ordered EKG 12 Lead [EK] Routine Ther 05/28/20 12:48 Ordered Medication Orders Sodium Chloride (Saline Flush) 10 ml FLUSH ASDIRECTED PRN PRN Reason: Keep Vein Open Last Admin: 05/28/20 13:20 Dose: 10 ml Documented by: RANDELL Assessment/Plan Comment:: ASSESSMENT AND PLAN CONGESTIVE HEART FAILURE EXACERBATION-he has a known history of longstanding coronary artery disease and congestive heart failure. No available echocardiograms available in our EMR for review. Recent difficulty with peripheral edema and now shortness of breath with hypoxia. Chest x-ray is consistent with pulmonary edema. He has improved somewhat following IV furosemide given in the emergency department. -Furosemide 40 mg IV again later this evening -Echocardiogram in a.m. -Cardiac monitoring -Consider addition of ARB, he has a history of allergy to lisinopril -Continue beta-deedee therapy -2 g sodium diet HYPOXIC RESPIRATORY FAILURE-some improvement while in the emergency department after receiving IV furosemide. He remained hypoxic despite supplemental oxygen but has had good improvement in oxygenation with use of noninvasive positive pressure ventilation. -Continue BiPAP -Supplemental oxygen as needed FALL EARLY THIS MORNING-he experienced a laceration on his left hand that has b een sutured by Dr. Gao. Currently complains of right hip and left elbow pain. No significant increase in pain with passive range of motion of the right hip or left elbow. -X-ray right hip and left elbow TYPE 2 DIABETES MELLITUS -Continue Metformin -4 times daily glucometers -Low-dose sliding scale Humalog CHRONIC KIDNEY DISEASE STAGE III -Closely monitor urine output and renal function MAINTENANCE ISSUES -DVT prophylaxis; enoxaparin 40 mg subcu daily -GI prophylaxis; not indicated -Anderson catheter; not indicated -Nutrition; 2 g sodium diet -Nicotine dependence; not required CODE STATUS-DNR/DNI ADMISSION STATUS-patient will be admitted to inpatient status, expect at least a 2 night hospital stay for evaluation and management of problems as outlined above. At the time of this admission I do not reasonably expected evaluation and management of this problem will require more than a 96 hour hospital stay. DISPOSITION-anticipate discharge to home after the hospital stay. PRIMARY CARE PROVIDER-Dr. Vigil - Mortality Measure Prognosis:: Poor
[2020-05-28] MEDS ORDERED: Polyethylene Glycol 3350 Powder 17 GM Packet PO PRN (18:08)
[2020-05-28] MEDS ORDERED: Ondansetron 4 MG/2 ML SDV IV PRN (18:08)
[2020-05-28] MEDS ORDERED: Albuterol 0.083% 2.5 MG/3 ML Neb Soln NEB PRN (18:08)
[2020-05-28] MEDS ORDERED: Enoxaparin 40 MG/0.4 ML Syringe SUBCUT SCH (18:08)
[2020-05-28] MEDS ORDERED: Glucose Gel 15 GM in 37.5 GM Tube PO PRN (18:08)
[2020-05-28] MEDS ORDERED: 50% Dextrose in Water 50 ML Syringe IV PRN (18:08)
[2020-05-28] MEDS ORDERED: ISOSORBIDE MONONITRATE PO SCH (18:08)
[2020-05-28] MEDS: hydrALAZINE 10 MG Tab PO SCH (19:48)
[2020-05-28] MEDS: Aspirin 81 MG Tab.EC PO SCH (19:48)
[2020-05-28] MEDS ORDERED: Simvastatin 20 MG Tab ONE (20:21)
[2020-05-28] MEDS ORDERED: Amiodarone 200 MG Tab ONE (20:22)
[2020-05-28] MEDS: Isosorbide Mononitrate 30 MG Tab.ER PO SCH (20:26)
[2020-05-28] MEDS: Ferrous Sulfate 325 MG Tab PO SCH (20:30)
[2020-05-28] MEDS: Amiodarone 200 MG Tab PO SCH (20:30)
[2020-05-28] MEDS: Tamsulosin 0.4 MG Cap.ER PO SCH (20:30)
[2020-05-28] MEDS: Simvastatin 20 MG Tab PO SCH (20:33)
[2020-05-28] MEDS ORDERED: AMIODARONE 200 MG PO SCH (21:00)
[2020-05-28] MEDS ORDERED: Non-Formulary Medication 1 Each (Simvastatin [Zocor] 10 MG) PO SCH (21:00)
[2020-05-28] MEDS ORDERED: Carvedilol 12.5 MG Tab PO SCH (21:00)
[2020-05-28] MEDS: Insulin Lispro 100 Unit/ML 3 ML KwikPen SUBCUT SCH (21:35)
[2020-05-29] MEDS: Acetaminophen 325 MG Tab PO PRN (02:18)
[2020-05-29] MEDS: Insulin Lispro 100 Unit/ML 3 ML KwikPen SUBCUT SCH ×2 (07:44→11:46)
[2020-05-29] MEDS ORDERED: Non-Formulary Medication 1 Each (Metformin [Glucophage Xr] 500 MG) PO SCH (09:00)
[2020-05-29] MEDS: metFORMIN 500 MG Tab PO SCH ×2 (09:04→16:27)
[2020-05-29] MEDS: Aspirin 81 MG Tab.EC PO SCH (09:05)
[2020-05-29] MEDS: Ferrous Sulfate 325 MG Tab PO SCH ×2 (09:05→22:12)
[2020-05-29] MEDS: Amiodarone 200 MG Tab PO SCH ×2 (09:05→22:12)
[2020-05-29] MEDS: Spironolactone 25 MG Tab PO SCH (09:05)
[2020-05-29] MEDS: Tamsulosin 0.4 MG Cap.ER PO SCH ×2 (09:05→22:11)
[2020-05-29] MEDS: Isosorbide Mononitrate 30 MG Tab.ER PO SCH (09:06)
[2020-05-29] MEDS: amLODIPine 5 MG Tab PO SCH (09:06)
[2020-05-29] MEDS: Carvedilol 3.125 MG Tab PO SCH ×2 (09:06→22:12)
[2020-05-29] MEDS: hydrALAZINE 10 MG Tab PO SCH (09:06)
[2020-05-29] MEDS: cefTRIAXone 1 GM in Sodium Chloride 0.9% 50 ML IV SCH (09:10)
[2020-05-29] MEDS: Doxycycline 100 MG in Sodium Chloride 0.9% 100 ML IV SCH ×2 (09:55→22:13)
--- NOTE | 2020-05-29 10:53 | PCM.PN ---
- General Info Date of Service: 05/29/20 Subjective Update: No acute events overnight. He feels moderately short of breath and does have a cough with some sputum. He did have a fever overnight. He still feels weak. Still has some pain in his left elbow and right hip as well as his left hand. X-rays were negative yesterday. Lower extremity edema is much better after diuresis. Echocardiogram today showed mild reduction of EF at 45%, moderate TR and MR as well as diastolic dysfunction. Functional Status: Reports: Pain Controlled, Tolerating Diet - Review of Systems General: Reports: Weakness Pulmonary: Reports: Shortness of Breath, Cough - Patient Data Vitals - Most Recent: Last Vital Signs Temp 37.2 C 05/29/20 07:20 Pulse 68 05/29/20 09:06 Resp 18 05/29/20 07:20 BP 127/60 05/29/20 09:06 Pulse Ox 92 L 05/29/20 07:20 Weight - Most Recent: 86.636 kg I&O - Last 24 Hours: Intake & Output 05/28/20 05/29/20 05/29/20 22:59 06:59 14:59 Intake Total 480 100 510 Output Total 1450 125 Balance -970 -25 510 Lab Results Last 24 Hours: Laboratory Results - last 24 hr 05/28/20 05/28/20 05/28/20 Range/Units 12:45 13:00 13:12 WBC 8.8 (4.5-11.0) K/uL RBC 4.71 (4.30-5.90) M/uL Hgb 13.7 D (12.0-15.0) g/dL Hct 44.0 (40.0-54.0) % POC Hct 41 (36-48) % MCV 93 (80-98) fL MCH 29 (27-31) pg MCHC 31 L (32-36) % Plt Count 190 (150-400) K/uL Neut % (Auto) 86 H (36-66) % Lymph % (Auto) 9 L (24-44) % [place] % (Auto) 5 (2-6) % Eos % (Auto) 0 L (2-4) % Baso % (Auto) 0 (0-1) % Sample Site Rt radial POC ABG pH 7.34 L (7.35-7.45) POC ABG pCO2 36.9 (35-45) mmHG POC ABG pO2 49 L (80-105) mmHg POC ABG HCO3 19.9 L (22.0-26.0) mmol/L POC ABG Total CO2 21 L (23-27) mmol/L POC ABG O2 Sat 82 L (95-98) % POC ABG Base Excess -6 L (-2-3) mmol/L Basim Test Pass O2 Delivery Device POC O2 Flow Rate 4 POC Sodium 139 L (140-148) mmol/L Sodium (140-148) mmol/L POC Potassium 4.2 (3.5-4.9) mmol/L Potassium (3.6-5.2) mmol/L Chloride (100-108) mmol/L Carbon Dioxide (21-32) mmol/L Anion Gap (5.0-14.0) mmol/L BUN (7-18) mg/dL Creatinine (0.8-1.3) mg/dL Est Cr Clr Drug Dosing mL/min Estimated GFR (MDRD) (>60) Glucose (74-106) mg/dL POC Glucose (74-106) MG/DL Calcium (8.5-10.1) mg/dL POC WB Ioniz Calcium 1.25 (1.12-1.32) mmol/L Magnesium (1.8-2.4) mg/dL Total Bilirubin (0.2-1.0) mg/dL AST (15-37) U/L ALT (12-78) U/L Alkaline Phosphatase (46-116) U/L NT-Pro-B Natriuret Pep (5-450) pg/mL Total Protein (6.4-8.2) g/dL Albumin (3.4-5.0) g/dL Globulin (2.3-3.5) g/dL Albumin/Globulin Ratio (1.2-2.2) Urine Color Yellow (YELLOW) Urine Appearance Clear (CLEAR) Urine pH 5.5 (5.0-8.0) Ur Specific [place] >= 1.030 (1.008-1.030) Urine Protein 100 H (NEGATIVE) mg/dL Urine Glucose (UA) 250 H (NEGATIVE) mg/dL Urine Ketones Negative (NEGATIVE) mg/dL Urine Occult Blood Trace-intact H (NEGATIVE) Urine Nitrite Negative (NEGATIVE) Urine Bilirubin Negative (NEGATIVE) Urine Urobilinogen 0.2 (0.2-1.0) EU/dL Ur Leukocyte Esterase Negative (NEGATIVE) Urine RBC 0-5 (0-5) Urine WBC Not seen (0-5) Ur Epithelial Cells Not seen Urine Bacteria Not seen SARS-CoV-2 RNA (SANDRA) (NEGATIVE) SARS CoV-2 RNA Rapid SANDRA 05/28/20 05/28/20 05/28/20 Range/Units 13:12 13:12 17:50 WBC (4.5-11.0) K/uL RBC (4.30-5.90) M/uL Hgb (12.0-15.0) g/dL Hct (40.0-54.0) % POC Hct (36-48) % MCV (80-98) fL MCH (27-31) pg MCHC (32-36) % Plt Count (150-400) K/uL Neut % (Auto) (36-66) % Lymph % (Auto) (24-44) % [place] % (Auto) (2-6) % Eos % (Auto) (2-4) % Baso % (Auto) (0-1) % Sample Site POC ABG pH (7.35-7.45) POC ABG pCO2 (35-45) mmHG POC ABG pO2 (80-105) mmHg POC ABG HCO3 (22.0-26.0) mmol/L POC ABG Total CO2 (23-27) mmol/L POC ABG O2 Sat (95-98) % POC ABG Base Excess (-2-3) mmol/L Basim Test O2 Delivery Device POC O2 Flow Rate POC Sodium (140-148) mmol/L Sodium 140 (140-148) mmol/L POC Potassium (3.5-4.9) mmol/L Potassium 4.5 (3.6-5.2) mmol/L Chloride 104 (100-108) mmol/L Carbon Dioxide 23 (21-32) mmol/L Anion Gap 13.3 (5.0-14.0) mmol/L BUN 37 H (7-18) mg/dL Creatinine 1.6 H (0.8-1.3) mg/dL Est Cr Clr Drug Dosing 37.44 mL/min Estimated GFR (MDRD) 42 L (>60) Glucose 229 H (74-106) mg/dL POC Glucose (74-106) MG/DL Calcium 8.7 (8.5-10.1) mg/dL POC WB Ioniz Calcium (1.12-1.32) mmol/L Magnesium (1.8-2.4) mg/dL Total Bilirubin 0.4 (0.2-1.0) mg/dL AST 45 H D (15-37) U/L ALT 69 D (12-78) U/L Alkaline Phosphatase 81 (46-116) U/L NT-Pro-B Natriuret Pep 5284 H (5-450) pg/mL Total Protein 7.1 (6.4-8.2) g/dL Albumin 3.6 (3.4-5.0) g/dL Globulin 3.5 (2.3-3.5) g/dL Albumin/Globulin Ratio 1.0 L (1.2-2.2) Urine Color (YELLOW) Urine Appearance (CLEAR) Urine pH (5.0-8.0) Ur Specific [place] (1.008-1.030) Urine Protein (NEGATIVE) mg/dL Urine Glucose (UA) (NEGATIVE) mg/dL Urine Ketones (NEGATIVE) mg/dL Urine Occult Blood (NEGATIVE) Urine Nitrite (NEGATIVE) Urine Bilirubin (NEGATIVE) Urine Urobilinogen (0.2-1.0) EU/dL Ur Leukocyte Esterase (NEGATIVE) Urine RBC (0-5) Urine WBC (0-5) Ur Epithelial Cells Urine Bacteria SARS-CoV-2 RNA (SANDRA) Negative (NEGATIVE) SARS CoV-2 RNA Rapid SANDRA 05/28/20 05/28/20 05/29/20 Range/Units 17:54 21:30 04:00 WBC 8.8 (4.5-11.0) K/uL RBC 4.17 L (4.30-5.90) M/uL Hgb 12.1 (12.0-15.0) g/dL Hct 38.8 L (40.0-54.0) % POC Hct (36-48) % MCV 93 (80-98) fL MCH 29 (27-31) pg MCHC 31 L (32-36) % Plt Count 181 (150-400) K/uL Neut % (Auto) 77 H (36-66) % Lymph % (Auto) 15 L (24-44) % [place] % (Auto) 8 H (2-6) % Eos % (Auto) 0 L (2-4) % Baso % (Auto) 0 (0-1) % Sample Site POC ABG pH (7.35-7.45) POC ABG pCO2 (35-45) mmHG POC ABG pO2 (80-105) mmHg POC ABG HCO3 (22.0-26.0) mmol/L POC ABG Total CO2 (23-27) mmol/L POC ABG O2 Sat (95-98) % POC ABG Base Excess (-2-3) mmol/L Basim Test O2 Delivery Device POC O2 Flow Rate POC Sodium (140-148) mmol/L Sodium (140-148) mmol/L POC Potassium (3.5-4.9) mmol/L Potassium (3.6-5.2) mmol/L Chloride (100-108) mmol/L Carbon Dioxide (21-32) mmol/L Anion Gap (5.0-14.0) mmol/L BUN (7-18) mg/dL Creatinine (0.8-1.3) mg/dL Est Cr Clr Drug Dosing mL/min Estimated GFR (MDRD) (>60) Glucose (74-106) mg/dL POC Glucose 220 H (74-106) MG/DL Calcium (8.5-10.1) mg/dL POC WB Ioniz Calcium (1.12-1.32) mmol/L Magnesium (1.8-2.4) mg/dL Total Bilirubin (0.2-1.0) mg/dL AST (15-37) U/L ALT (12-78) U/L Alkaline Phosphatase (46-116) U/L NT-Pro-B Natriuret Pep (5-450) pg/mL Total Protein (6.4-8.2) g/dL Albumin (3.4-5.0) g/dL Globulin (2.3-3.5) g/dL Albumin/Globulin Ratio (1.2-2.2) Urine Color (YELLOW) Urine Appearance (CLEAR) Urine pH (5.0-8.0) Ur Specific [place] (1.008-1.030) Urine Protein (NEGATIVE) mg/dL Urine Glucose (UA) (NEGATIVE) mg/dL Urine Ketones (NEGATIVE) mg/dL Urine Occult Blood (NEGATIVE) Urine Nitrite (NEGATIVE) Urine Bilirubin (NEGATIVE) Urine Urobilinogen (0.2-1.0) EU/dL Ur Leukocyte Esterase (NEGATIVE) Urine RBC (0-5) Urine WBC (0-5) Ur Epithelial Cells Urine Bacteria SARS-CoV-2 RNA (SANDRA) (NEGATIVE) SARS CoV-2 RNA Rapid SANDRA Negative 05/29/20 05/29/20 Range/Units 04:00 07:30 WBC (4.5-11.0) K/uL RBC (4.30-5.90) M/uL Hgb (12.0-15.0) g/dL Hct (40.0-54.0) % POC Hct (36-48) % MCV (80-98) fL MCH (27-31) pg MCHC (32-36) % Plt Count (150-400) K/uL Neut % (Auto) (36-66) % Lymph % (Auto) (24-44) % [place] % (Auto) (2-6) % Eos % (Auto) (2-4) % Baso % (Auto) (0-1) % Sample Site POC ABG pH (7.35-7.45) POC ABG pCO2 (35-45) mmHG POC ABG pO2 (80-105) mmHg POC ABG HCO3 (22.0-26.0) mmol/L POC ABG Total CO2 (23-27) mmol/L POC ABG O2 Sat (95-98) % POC ABG Base Excess (-2-3) mmol/L Basim Test O2 Delivery Device POC O2 Flow Rate POC Sodium (140-148) mmol/L Sodium 142 (140-148) mmol/L POC Potassium (3.5-4.9) mmol/L Potassium 3.7 (3.6-5.2) mmol/L Chloride 107 (100-108) mmol/L Carbon Dioxide 26 (21-32) mmol/L Anion Gap 9.5 (5.0-14.0) mmol/L BUN 33 H (7-18) mg/dL Creatinine 1.4 H (0.8-1.3) mg/dL Est Cr Clr Drug Dosing 42.78 mL/min Estimated GFR (MDRD) 49 L (>60) Glucose 164 H (74-106) mg/dL POC Glucose 140 H (74-106) MG/DL Calcium 8.2 L (8.5-10.1) mg/dL POC WB Ioniz Calcium (1.12-1.32) mmol/L Magnesium 2.2 (1.8-2.4) mg/dL Total Bilirubin (0.2-1.0) mg/dL AST (15-37) U/L ALT (12-78) U/L Alkaline Phosphatase (46-116) U/L NT-Pro-B Natriuret Pep (5-450) pg/mL Total Protein (6.4-8.2) g/dL Albumin (3.4-5.0) g/dL Globulin (2.3-3.5) g/dL Albumin/Globulin Ratio (1.2-2.2) Urine Color (YELLOW) Urine Appearance (CLEAR) Urine pH (5.0-8.0) Ur Specific [place] (1.008-1.030) Urine Protein (NEGATIVE) mg/dL Urine Glucose (UA) (NEGATIVE) mg/dL Urine Ketones (NEGATIVE) mg/dL Urine Occult Blood (NEGATIVE) Urine Nitrite (NEGATIVE) Urine Bilirubin (NEGATIVE) Urine Urobilinogen (0.2-1.0) EU/dL Ur Leukocyte Esterase (NEGATIVE) Urine RBC (0-5) Urine WBC (0-5) Ur Epithelial Cells Urine Bacteria SARS-CoV-2 RNA (SANDRA) (NEGATIVE) SARS CoV-2 RNA Rapid SANDRA Med Orders - Current: Current Medications Acetaminophen (Tylenol) 650 mg PO Q4H PRN PRN Reason: Pain (Mild 1-3)/fever Last Admin: 05/29/20 02:18 Dose: 650 mg Documented by: Albuterol (Proventil Neb Soln) 2.5 mg NEB Q4H PRN PRN Reason: Shortness Of Breath/wheezing Amiodarone HCl (Cordarone) 200 mg PO BID [facility] Last Admin: 05/29/20 09:05 Dose: 200 mg Documented by: Amlodipine Besylate (Norvasc) 5 mg PO DAILY [facility] Last Admin: 05/29/20 09:06 Dose: 5 mg Documented by: Aspirin (Halfprin) 81 mg PO DAILY [facility] Last Admin: 05/29/20 09:05 Dose: 81 mg Documented by: Carvedilol (Coreg) 6.25 mg PO BID [facility] Last Admin: 05/29/20 09:06 Dose: 6.25 mg Documented by: Dextrose (Glutose 15) 15 gm PO ONETIME PRN PRN Reason: Hypoglycemia Dextrose/Water (Dextrose 50% In Water) 50 ml IV ONETIME PRN PRN Reason: Hypoglycemia Enoxaparin Sodium (Lovenox) 40 mg SUBCUT Q24H [facility] Ferrous Sulfate (Ferrous Sulfate) 325 mg PO BID [facility] Last Admin: 05/29/20 09:05 Dose: 325 mg Documented by: Hydralazine HCl (Apresoline) 10 mg PO DAILY [facility] Last Admin: 05/29/20 09:06 Dose: 10 mg Documented by: Doxycycline Hyclate 100 mg/ (Sodium Chloride) 100 mls @ 100 mls/hr IV Q12H [facility] Last Admin: 05/29/20 09:55 Dose: 100 mls/hr Documented by: Ceftriaxone Sodium 1 gm/ (Sodium Chloride) 50 mls @ 100 mls/hr IV Q24H [facility] Last Admin: 05/29/20 09:10 Dose: 100 mls/hr Documented by: Insulin Human Lispro (Humalog) 0 unit SUBCUT QIDACANDBED [facility]; Protocol Last Admin: 05/29/20 07:44 Dose: Not Given Documented by: Isosorbide Mononitrate (Imdur) 60 mg PO DAILY [facility] Last Admin: 05/29/20 09:06 Dose: 60 mg Documented by: Metformin HCl (Glucophage) 250 mg PO BIDMEALS [facility] Last Admin: 05/29/20 09:04 Dose: 250 mg Documented by: Ondansetron HCl (Zofran) 4 mg IV Q4H PRN PRN Reason: Nausea/Vomiting Polyethylene Glycol (Miralax) 17 gm PO DAILY PRN PRN Reason: Constipation Simvastatin (Zocor) 10 mg PO BEDTIME [facility] Last Admin: 05/28/20 20:33 Dose: 10 mg Documented by: Sodium Chloride (Saline Flush) 10 ml FLUSH ASDIRECTED PRN PRN Reason: Keep Vein Open Spironolactone (Aldactone) 12.5 mg PO DAILY [facility] Last Admin: 05/29/20 09:05 Dose: 12.5 mg Documented by: Tamsulosin HCl (Flomax) 0.4 mg PO BID [facility] Last Admin: 05/29/20 09:05 Dose: 0.4 mg Documented by: Discontinued Medications Albuterol (Proventil Neb Soln) 2.5 mg NEB ONETIME ONE Stop: 05/28/20 12:46 Last Admin: 05/28/20 13:20 Dose: 2.5 mg Documented by: Amiodarone HCl (Cordarone) Confirm Administered Dose 200 mg .ROUTE .STK-MED ONE Stop: 05/28/20 20:23 Last Admin: 05/28/20 20:32 Dose: Not Given Documented by: Bacitracin (Bacitracin Oint 1 Gm) 1 dose TOP ONETIME ONE Stop: 05/28/20 14:29 Last Admin: 05/28/20 14:43 Dose: 1 dose Documented by: Carvedilol (Coreg) 6.25 mg PO BID [facility] Last Admin: 05/28/20 20:30 Dose: 6.25 mg Documented by: Enoxaparin Sodium (Lovenox) 40 mg SUBCUT DAILY [facility] Last Admin: 05/28/20 19:49 Dose: 40 mg Documented by: Furosemide (Lasix) 60 mg IVPUSH ONETIME ONE Stop: 05/28/20 12:48 Last Admin: 05/28/20 13:20 Dose: 60 mg Documented by: Furosemide (Lasix) 40 mg IVPUSH NOW ONE Stop: 05/28/20 21:01 Last Admin: 05/28/20 20:25 Dose: 40 mg Documented by: Lidocaine HCl (Xylocaine-Mpf 1%) 5 ml INJECT ONETIME ONE Stop: 05/28/20 14:28 Last Admin: 05/28/20 14:43 Dose: 5 ml Documented by: Non-Formulary Medication (Amiodarone [Pacerone]) 200 mg PO BID [facility] Non-Formulary Medication (Isosorbide Mononitrate [Imdur]) 1 tab PO DAILY [facility] Last Admin: 05/28/20 20:36 Dose: Not Given Documented by: Non-Formulary Medication (Metformin [Glucophage Xr]) 500 mg PO DAILY [facility] Non-Formulary Medication (Simvastatin [Zocor]) 10 mg PO BEDTIME [facility] Simvastatin (Zocor) Confirm Administered Dose 20 mg .ROUTE .STK-MED ONE Stop: 05/28/20 20:22 Last Admin: 05/28/20 20:34 Dose: Not Given Documented by: Sodium Chloride (Saline Flush) 10 ml FLUSH ASDIRECTED PRN PRN Reason: Keep Vein Open Last Admin: 05/28/20 13:20 Dose: 10 ml Documented by: - Exam Quality Assessment: Supplemental Oxygen General: Alert, Oriented, Cooperative, No Acute Distress Lungs: Normal Respiratory Effort, Decreased Breath Sounds (left lung base), Crackles (left mid and lower lung ). No: Wheezing Cardiovascular: Regular Rate, Regular Rhythm GI/Abdominal Exam: Soft, No Distention Extremities: Pedal Edema. No: Increased Warmth Skin: Warm, Dry Psy/Mental Status: Alert, Normal Affect Sepsis Event Note - Evaluation Sepsis Screening Result: No Definite Risk - Focused Exam Vital Signs: Vital Signs Temp Temp Pulse Pulse Resp BP BP 05/29/20 09:06 68 127/60 05/29/20 07:20 37.2 C 65 18 127/60 05/29/20 07:12 05/29/20 03:34 37.9 C 74 18 135/62 05/29/20 02:18 37.9 C 05/29/20 01:00 Pulse Ox 05/29/20 09:06 05/29/20 07:20 92 L 05/29/20 07:12 94 L 05/29/20 03:34 91 L 05/29/20 02:18 05/29/20 01:00 97 - Problem List Review Problem List Initiated/Reviewed/Updated: Yes - My Orders Last 24 Hours: My Active Orders 05/29/20 09:30 cefTRIAXone [Rocephin] 1 gm Sodium Chloride 0.9% [Normal Saline] 50 ml IV Q24H 05/29/20 10:00 Doxycycline [Vibramycin] 100 mg Sodium Chloride 0.9% [Normal Saline] 100 ml IV Q12H 05/29/20 10:51 Potassium Chloride [Klor-Con M20] 40 meq PO ONETIME ONE 05/30/20 05:00 BASIC METABOLIC PANEL,BMP [CHEM] Timed CBC W/O DIFF,HEMOGRAM [HEME] Timed (1) - Plan Plan:: ASSESSMENT AND PLAN LEFT LUNG PNEUMONIA-complicated by acute respiratory failure with hypoxia. He did require noninvasive ventilation overnight but is more stable today. Febrile overnight. -Start ceftriaxone and doxycycline -Supplement oxygen -blood cultures if he has a fever -Sputum culture CONGESTIVE HEART FAILURE, COMBINED-history of longstanding coronary artery disease and congestive heart failure. EF mildly reduced and some diastolic dysfunction as well. This appears to be well compensated at this point after diuresis yesterday. -Cardiac monitoring -Consider addition of ARB, he has a history of allergy to lisinopril -Continue beta-deedee therapy -2 g sodium diet FALL-he experienced a laceration on his left hand that has been sutured by Dr. Gao. Still having some hip and elbow pain but x-rays were negative. -Pain control TYPE 2 DIABETES MELLITUS -Continue Metformin -4 times daily glucometers CHRONIC KIDNEY DISEASE STAGE III-creatinine slightly better today. -Closely monitor urine output and renal function MAINTENANCE ISSUES -DVT prophylaxis; enoxaparin 40 mg subcu daily -GI prophylaxis; not indicated -Anderson catheter; not indicated -Nutrition; 2 g sodium diet DISPOSITION-anticipate discharge to home after the hospital stay. Danielito Birch MD
--- NOTE | 2020-05-29 10:54 | CR ---
CHEST: Portable 05/28/2020 at 1:02 PM CLINICAL HISTORY:SOB COMPARISON:April 2019 FINDINGS: Patient is a diffuse left lung infiltrate more notable in the left lower lobe. There is also right lower lobe infiltrate. Heart size and pulmonary vascularity are normal. Patient has a permanent cardiac pacer/defibrillator. IMPRESSION: Moderate diffuse left lung pneumonic infiltrate Right lower lobe pneumonic infiltrate
--- NOTE | 2020-05-29 11:08 | CR ---
Hip Min 2V or 3V w Pelvis Rt CLINICAL HISTORY: Pain after fall FINDINGS: There is joint space narrowing in both hips right greater than left. No fracture or dislocation is identified. There are some degenerative change in the lower lumbar spine Impression: Osteoarthritic change right greater than left No fracture or dislocation
--- NOTE | 2020-05-29 11:10 | CR ---
Elbow Min 3V Lt CLINICAL HISTORY: Pain after fall FINDINGS: There is deformity at the elbow joint due to old injury. No acute fractures identified. There is some spurring and irregularity of the medial epicondyle. This is also likely related to old injury. Acute bony avulsion is felt less likely. IMPRESSION: Multiple deformities of the elbow due to old injury Bony density off the medial epicondyle is likely old. Acute avulsion is felt less likely
[2020-05-29] MEDS ORDERED: Potassium Chloride 20 MEQ Tab.ER PO ONE (12:00)
[2020-05-29] MEDS: Enoxaparin 40 MG/0.4 ML Syringe SUBCUT SCH (17:21)
[2020-05-29] MEDS: Simvastatin 20 MG Tab PO SCH (22:11)
[2020-05-30] MEDS: Acetaminophen 325 MG Tab PO PRN ×2 (02:43→15:05)
[2020-05-30] MEDS: hydrALAZINE 10 MG Tab PO SCH (08:41)
[2020-05-30] MEDS: Tamsulosin 0.4 MG Cap.ER PO SCH ×2 (08:41→21:30)
[2020-05-30] MEDS: Carvedilol 3.125 MG Tab PO SCH ×2 (08:41→21:30)
[2020-05-30] MEDS: Isosorbide Mononitrate 30 MG Tab.ER PO SCH (08:41)
[2020-05-30] MEDS: amLODIPine 5 MG Tab PO SCH (08:41)
[2020-05-30] MEDS: Amiodarone 200 MG Tab PO SCH ×2 (08:41→21:31)
[2020-05-30] MEDS: Aspirin 81 MG Tab.EC PO SCH (08:42)
[2020-05-30] MEDS: Spironolactone 25 MG Tab PO SCH (08:42)
[2020-05-30] MEDS: Ferrous Sulfate 325 MG Tab PO SCH ×2 (08:42→21:30)
[2020-05-30] MEDS: metFORMIN 500 MG Tab PO SCH ×2 (08:42→17:32)
[2020-05-30] MEDS: cefTRIAXone 1 GM in Sodium Chloride 0.9% 50 ML IV SCH (09:28)
[2020-05-30] MEDS: Doxycycline 100 MG in Sodium Chloride 0.9% 100 ML IV SCH ×2 (10:37→21:31)
[2020-05-30] MEDS ORDERED: Furosemide 40 MG/4 ML VIAL IVPUSH ONE (12:20)
--- NOTE | 2020-05-30 12:20 | PCM.PN ---
- General Info Date of Service: 05/30/20 Subjective Update: No acute events overnight. Patient did have some episodes of desaturation but this was in the setting of him taking off his oxygen. He is down to 3 L of supplemental oxygen this morning. Moderate cough with occasional sputum. He does not feel very short of breath. He is requiring assistance to get to the bathroom and back and has been using a walker. Low-grade fever overnight. Lower extremity edema is slightly increased today. Functional Status: Reports: Pain Controlled, Tolerating Diet - Review of Systems General: Reports: Weakness Pulmonary: Reports: Shortness of Breath, Cough - Patient Data Vitals - Most Recent: Last Vital Signs Temp 37.6 C 05/30/20 11:26 Pulse 70 05/30/20 11:26 Resp 16 05/30/20 11:26 BP 138/65 05/30/20 11:26 Pulse Ox 93 L 05/30/20 11:26 Weight - Most Recent: 84.096 kg I&O - Last 24 Hours: Intake & Output 05/29/20 05/30/20 05/30/20 22:59 06:59 14:59 Intake Total 1210 386 Output Total 770 Balance 1210 -770 386 Lab Results Last 24 Hours: Laboratory Results - last 24 hr 05/30/20 05/30/20 Range/Units 04:00 04:00 WBC 10.3 (4.5-11.0) K/uL RBC 4.50 (4.30-5.90) M/uL Hgb 13.3 (12.0-15.0) g/dL Hct 42.0 (40.0-54.0) % MCV 93 (80-98) fL MCH 30 (27-31) pg MCHC 32 (32-36) % Plt Count 175 (150-400) K/uL Sodium 141 (140-148) mmol/L Potassium 4.0 (3.6-5.2) mmol/L Chloride 106 (100-108) mmol/L Carbon Dioxide 26 (21-32) mmol/L Anion Gap 8.9 (5.0-14.0) mmol/L BUN 29 H (7-18) mg/dL Creatinine 1.4 H (0.8-1.3) mg/dL Est Cr Clr Drug Dosing 42.78 mL/min Estimated GFR (MDRD) 49 L (>60) Glucose 166 H (74-106) mg/dL Calcium 8.5 (8.5-10.1) mg/dL Med Orders - Current: Current Medications Acetaminophen (Tylenol) 650 mg PO Q4H PRN PRN Reason: Pain (Mild 1-3)/fever Last Admin: 05/30/20 02:43 Dose: 650 mg Documented by: Albuterol (Proventil Neb Soln) 2.5 mg NEB Q4H PRN PRN Reason: Shortness Of Breath/wheezing Amiodarone HCl (Cordarone) 200 mg PO BID [facility] Last Admin: 05/30/20 08:41 Dose: 200 mg Documented by: Amlodipine Besylate (Norvasc) 5 mg PO DAILY [facility] Last Admin: 05/30/20 08:41 Dose: 5 mg Documented by: Aspirin (Halfprin) 81 mg PO DAILY [facility] Last Admin: 05/30/20 08:42 Dose: 81 mg Documented by: Carvedilol (Coreg) 6.25 mg PO BID [facility] Last Admin: 05/30/20 08:41 Dose: 6.25 mg Documented by: Dextrose (Glutose 15) 15 gm PO ONETIME PRN PRN Reason: Hypoglycemia Dextrose/Water (Dextrose 50% In Water) 50 ml IV ONETIME PRN PRN Reason: Hypoglycemia Enoxaparin Sodium (Lovenox) 40 mg SUBCUT Q24H [facility] Last Admin: 05/29/20 17:21 Dose: 40 mg Documented by: Ferrous Sulfate (Ferrous Sulfate) 325 mg PO BID [facility] Last Admin: 05/30/20 08:42 Dose: 325 mg Documented by: Hydralazine HCl (Apresoline) 10 mg PO DAILY [facility] Last Admin: 05/30/20 08:41 Dose: 10 mg Documented by: Doxycycline Hyclate 100 mg/ (Sodium Chloride) 100 mls @ 100 mls/hr IV Q12H [facility] Last Admin: 05/30/20 10:37 Dose: 100 mls/hr Documented by: Ceftriaxone Sodium 1 gm/ (Sodium Chloride) 50 mls @ 100 mls/hr IV Q24H [facility] Last Admin: 05/30/20 09:28 Dose: 100 mls/hr Documented by: Isosorbide Mononitrate (Imdur) 60 mg PO DAILY [facility] Last Admin: 05/30/20 08:41 Dose: 60 mg Documented by: Metformin HCl (Glucophage) 250 mg PO BIDMEALS [facility] Last Admin: 05/30/20 08:42 Dose: 250 mg Documented by: Ondansetron HCl (Zofran) 4 mg IV Q4H PRN PRN Reason: Nausea/Vomiting Polyethylene Glycol (Miralax) 17 gm PO DAILY PRN PRN Reason: Constipation Simvastatin (Zocor) 10 mg PO BEDTIME [facility] Last Admin: 05/29/20 22:11 Dose: 10 mg Documented by: Sodium Chloride (Saline Flush) 10 ml FLUSH ASDIRECTED PRN PRN Reason: Keep Vein Open Spironolactone (Aldactone) 12.5 mg PO DAILY [facility] Last Admin: 05/30/20 08:42 Dose: 12.5 mg Documented by: Tamsulosin HCl (Flomax) 0.4 mg PO BID [facility] Last Admin: 05/30/20 08:41 Dose: 0.4 mg Documented by: Discontinued Medications Albuterol (Proventil Neb Soln) 2.5 mg NEB ONETIME ONE Stop: 05/28/20 12:46 Last Admin: 05/28/20 13:20 Dose: 2.5 mg Documented by: Amiodarone HCl (Cordarone) Confirm Administered Dose 200 mg .ROUTE .STK-MED ONE Stop: 05/28/20 20:23 Last Admin: 05/28/20 20:32 Dose: Not Given Documented by: Bacitracin (Bacitracin Oint 1 Gm) 1 dose TOP ONETIME ONE Stop: 05/28/20 14:29 Last Admin: 05/28/20 14:43 Dose: 1 dose Documented by: Carvedilol (Coreg) 6.25 mg PO BID [facility] Last Admin: 05/28/20 20:30 Dose: 6.25 mg Documented by: Enoxaparin Sodium (Lovenox) 40 mg SUBCUT DAILY [facility] Last Admin: 05/28/20 19:49 Dose: 40 mg Documented by: Furosemide (Lasix) 60 mg IVPUSH ONETIME ONE Stop: 05/28/20 12:48 Last Admin: 05/28/20 13:20 Dose: 60 mg Documented by: Furosemide (Lasix) 40 mg IVPUSH NOW ONE Stop: 05/28/20 21:01 Last Admin: 05/28/20 20:25 Dose: 40 mg Documented by: Insulin Human Lispro (Humalog) 0 unit SUBCUT QIDACANDBED [facility]; Protocol Last Admin: 05/29/20 11:46 Dose: Not Given Documented by: Lidocaine HCl (Xylocaine-Mpf 1%) 5 ml INJECT ONETIME ONE Stop: 05/28/20 14:28 Last Admin: 05/28/20 14:43 Dose: 5 ml Documented by: Non-Formulary Medication (Amiodarone [Pacerone]) 200 mg PO BID [facility] Non-Formulary Medication (Isosorbide Mononitrate [Imdur]) 1 tab PO DAILY [facility] Last Admin: 05/28/20 20:36 Dose: Not Given Documented by: Non-Formulary Medication (Metformin [Glucophage Xr]) 500 mg PO DAILY [facility] Non-Formulary Medication (Simvastatin [Zocor]) 10 mg PO BEDTIME [facility] Potassium Chloride (Klor-Con M20) 40 meq PO ONETIME ONE Stop: 05/29/20 12:01 Last Admin: 05/29/20 12:20 Dose: 40 meq Documented by: Simvastatin (Zocor) Confirm Administered Dose 20 mg .ROUTE .STK-MED ONE Stop: 05/28/20 20:22 Last Admin: 05/28/20 20:34 Dose: Not Given Documented by: Sodium Chloride (Saline Flush) 10 ml FLUSH ASDIRECTED PRN PRN Reason: Keep Vein Open Last Admin: 05/28/20 13:20 Dose: 10 ml Documented by: - Exam Quality Assessment: Supplemental Oxygen General: Alert, Oriented, Cooperative, No Acute Distress Neck: No JVD Lungs: Normal Respiratory Effort, Crackles (both bases L>R) Cardiovascular: Regular Rate, Regular Rhythm Extremities: Pedal Edema. No: Increased Warmth Skin: Warm, Dry Psy/Mental Status: Alert, Normal Affect Sepsis Event Note - Evaluation Sepsis Screening Result: No Definite Risk - Focused Exam Vital Signs: Vital Signs Temp Temp Pulse Pulse Resp BP BP 05/30/20 11:26 37.6 C 70 16 138/65 05/30/20 08:41 74 145/72 H 05/30/20 07:20 05/30/20 06:54 37.4 C 85 16 145/72 H 05/30/20 03:44 05/30/20 02:43 38.1 C 05/30/20 02:38 38.1 C 84 18 150/72 H 05/30/20 01:20 Pulse Ox 05/30/20 11:26 93 L 05/30/20 08:41 05/30/20 07:20 94 L 05/30/20 06:54 95 05/30/20 03:44 82 L 05/30/20 02:43 05/30/20 02:38 91 L 05/30/20 01:20 90 L - Problem List Review Problem List Initiated/Reviewed/Updated: Yes - My Orders Last 24 Hours: My Active Orders 05/30/20 12:18 Discontinue Telemetry Monitoring [Cardiac Monitoring Discontinue] [RC] Click to Edit 05/31/20 05:00 BASIC METABOLIC PANEL,BMP [CHEM] Timed CBC W/O DIFF,HEMOGRAM [HEME] Timed (1) - Plan Plan:: ASSESSMENT AND PLAN LEFT LUNG PNEUMONIA-complicated by acute respiratory failure with hypoxia. Oxygenation is slightly better today but still requiring supplemental oxygen. Tolerating antibiotics. Temperature curve improving. -Continue ceftriaxone and doxycycline -Supplement oxygen -blood cultures if he has a fever CONGESTIVE HEART FAILURE, COMBINED-history of longstanding coronary artery disease and congestive heart failure. EF mildly reduced and some diastolic dysfunction as well. Mild evidence for volume overload today -Cardiac monitoring -Dose of furosemide this morning -Continue beta-deedee therapy -2 g sodium diet FALL-he experienced a laceration on his left hand that has been sutured by Dr. Gao. No significant pain reported today. -Pain control -Suture removal 06/05 TYPE 2 DIABETES MELLITUS -Continue Metformin -4 times daily glucometers CHRONIC KIDNEY DISEASE STAGE III-creatinine stable. -Closely monitor urine output and renal function MAINTENANCE ISSUES -DVT prophylaxis; enoxaparin 40 mg subcu daily -GI prophylaxis; not indicated -Anderson catheter; not indicated -Nutrition; 2 g sodium diet DISPOSITION-anticipate discharge to home possibly with home care after the hospital stay. Danielito Birch MD
[2020-05-30] MEDS: Enoxaparin 40 MG/0.4 ML Syringe SUBCUT SCH (18:06)
[2020-05-30] MEDS: Simvastatin 20 MG Tab PO SCH (21:30)
[2020-05-31] MEDS: Acetaminophen 325 MG Tab PO PRN (04:51)
[2020-05-31] MEDS: hydrALAZINE 10 MG Tab PO SCH (08:22)
[2020-05-31] MEDS: metFORMIN 500 MG Tab PO SCH ×2 (08:22→17:02)
[2020-05-31] MEDS: Spironolactone 25 MG Tab PO SCH (08:22)
[2020-05-31] MEDS: Aspirin 81 MG Tab.EC PO SCH (08:23)
[2020-05-31] MEDS: Isosorbide Mononitrate 30 MG Tab.ER PO SCH (08:23)
[2020-05-31] MEDS: Ferrous Sulfate 325 MG Tab PO SCH ×2 (08:23→21:20)
[2020-05-31] MEDS: Amiodarone 200 MG Tab PO SCH ×2 (08:23→21:21)
[2020-05-31] MEDS: Tamsulosin 0.4 MG Cap.ER PO SCH ×2 (08:23→21:22)
[2020-05-31] MEDS: Carvedilol 3.125 MG Tab PO SCH ×2 (08:23→21:22)
[2020-05-31] MEDS: amLODIPine 5 MG Tab PO SCH (08:24)
[2020-05-31] MEDS: cefTRIAXone 1 GM in Sodium Chloride 0.9% 50 ML IV SCH (08:29)
[2020-05-31] MEDS: Doxycycline 100 MG in Sodium Chloride 0.9% 100 ML IV SCH (09:20)
--- NOTE | 2020-05-31 12:24 | PCM.PN ---
- General Info Date of Service: 05/31/20 Subjective Update: No acute events overnight. Oxygenation stable to slightly improved. Patient looks and feels better today. He does not feel short of breath but he does continue to require 3-1/2 L of supplemental oxygen. Lower extremity edema is better today but not resolved. Appetite has been good. Strength is improving slowly. Labs are unremarkable. Functional Status: Reports: Pain Controlled, Tolerating Diet - Review of Systems General: Reports: Weakness Pulmonary: Denies: Shortness of Breath - Patient Data Vitals - Most Recent: Last Vital Signs Temp 36.2 C 05/31/20 10:41 Pulse 61 05/31/20 10:41 Resp 16 05/31/20 10:41 BP 111/60 05/31/20 10:41 Pulse Ox 98 05/31/20 10:41 Weight - Most Recent: 85.366 kg I&O - Last 24 Hours: Intake & Output 05/30/20 05/31/20 05/31/20 22:59 06:59 14:59 Intake Total 840 150 Output Total 575 525 50 Balance 265 -525 100 Lab Results Last 24 Hours: Laboratory Results - last 24 hr 05/31/20 05/31/20 Range/Units 05:55 05:55 WBC 7.1 (4.5-11.0) K/uL RBC 4.14 L (4.30-5.90) M/uL Hgb 11.7 L (12.0-15.0) g/dL Hct 39.0 L (40.0-54.0) % MCV 94 (80-98) fL MCH 28 (27-31) pg MCHC 30 L (32-36) % Plt Count 153 (150-400) K/uL Sodium 144 (140-148) mmol/L Potassium 3.9 (3.6-5.2) mmol/L Chloride 107 (100-108) mmol/L Carbon Dioxide 26 (21-32) mmol/L Anion Gap 10.7 (5.0-14.0) mmol/L BUN 26 H (7-18) mg/dL Creatinine 1.3 (0.8-1.3) mg/dL Est Cr Clr Drug Dosing 46.08 mL/min Estimated GFR (MDRD) 53 L (>60) Glucose 145 H (74-106) mg/dL Calcium 8.2 L (8.5-10.1) mg/dL Med Orders - Current: Current Medications Acetaminophen (Tylenol) 650 mg PO Q4H PRN PRN Reason: Pain (Mild 1-3)/fever Last Admin: 05/31/20 04:51 Dose: 650 mg Documented by: Albuterol (Proventil Neb Soln) 2.5 mg NEB Q4H PRN PRN Reason: Shortness Of Breath/wheezing Amiodarone HCl (Cordarone) 200 mg PO BID [facility] Last Admin: 05/31/20 08:23 Dose: 200 mg Documented by: Amlodipine Besylate (Norvasc) 5 mg PO DAILY [facility] Last Admin: 05/31/20 08:24 Dose: 5 mg Documented by: Aspirin (Halfprin) 81 mg PO DAILY [facility] Last Admin: 05/31/20 08:23 Dose: 81 mg Documented by: Carvedilol (Coreg) 6.25 mg PO BID [facility] Last Admin: 05/31/20 08:23 Dose: 6.25 mg Documented by: Dextrose (Glutose 15) 15 gm PO ONETIME PRN PRN Reason: Hypoglycemia Dextrose/Water (Dextrose 50% In Water) 50 ml IV ONETIME PRN PRN Reason: Hypoglycemia Doxycycline Hyclate (Vibramycin) 100 mg PO BID [facility] Enoxaparin Sodium (Lovenox) 40 mg SUBCUT Q24H [facility] Last Admin: 05/30/20 18:06 Dose: 40 mg Documented by: Ferrous Sulfate (Ferrous Sulfate) 325 mg PO BID [facility] Last Admin: 05/31/20 08:23 Dose: 325 mg Documented by: Furosemide (Lasix) 60 mg IVPUSH ONETIME ONE Stop: 05/31/20 12:24 Hydralazine HCl (Apresoline) 10 mg PO DAILY [facility] Last Admin: 05/31/20 08:22 Dose: 10 mg Documented by: Ceftriaxone Sodium 1 gm/ (Sodium Chloride) 50 mls @ 100 mls/hr IV Q24H [facility] Last Admin: 05/31/20 08:29 Dose: 100 mls/hr Documented by: Isosorbide Mononitrate (Imdur) 60 mg PO DAILY [facility] Last Admin: 05/31/20 08:23 Dose: 60 mg Documented by: [facility] Last Admin: 05/31/20 08:22 Dose: 250 mg Documented by: Ondansetron HCl (Zofran) 4 mg IV Q4H PRN PRN Reason: Nausea/Vomiting Polyethylene Glycol (Miralax) 17 gm PO DAILY PRN PRN Reason: Constipation Simvastatin (Zocor) 10 mg PO BEDTIME [facility] Last Admin: 05/30/20 21:30 Dose: 10 mg Documented by: Sodium Chloride (Saline Flush) 10 ml FLUSH ASDIRECTED PRN PRN Reason: Keep Vein Open Spironolactone (Aldactone) 12.5 mg PO DAILY [facility] Last Admin: 05/31/20 08:22 Dose: 12.5 mg Documented by: Tamsulosin HCl (Flomax) 0.4 mg PO BID [facility] Last Admin: 05/31/20 08:23 Dose: 0.4 mg Documented by: Discontinued Medications Albuterol (Proventil Neb Soln) 2.5 mg NEB ONETIME ONE Stop: 05/28/20 12:46 Last Admin: 05/28/20 13:20 Dose: 2.5 mg Documented by: Amiodarone HCl (Cordarone) Confirm Administered Dose 200 mg .ROUTE .STK-MED ONE Stop: 05/28/20 20:23 Last Admin: 05/28/20 20:32 Dose: Not Given Documented by: Bacitracin (Bacitracin Oint 1 Gm) 1 dose TOP ONETIME ONE Stop: 05/28/20 14:29 Last Admin: 05/28/20 14:43 Dose: 1 dose Documented by: Carvedilol (Coreg) 6.25 mg PO BID [facility] Last Admin: 05/28/20 20:30 Dose: 6.25 mg Documented by: Enoxaparin Sodium (Lovenox) 40 mg SUBCUT DAILY [facility] Last Admin: 05/28/20 19:49 Dose: 40 mg Documented by: Furosemide (Lasix) 60 mg IVPUSH ONETIME ONE Stop: 05/28/20 12:48 Last Admin: 05/28/20 13:20 Dose: 60 mg Documented by: Furosemide (Lasix) 40 mg IVPUSH NOW ONE Stop: 05/28/20 21:01 Last Admin: 05/28/20 20:25 Dose: 40 mg Documented by: Furosemide (Lasix) 40 mg IVPUSH NOW ONE Stop: 05/30/20 12:21 Last Admin: 05/30/20 12:53 Dose: 40 mg Documented by: Doxycycline Hyclate 100 mg/ (Sodium Chloride) 100 mls @ 100 mls/hr IV Q12H [facility] Last Admin: 05/31/20 09:20 Dose: 100 mls/hr Documented by: Insulin Human Lispro (Humalog) 0 unit SUBCUT QIDACANDBED [facility]; Protocol Last Admin: 05/29/20 11:46 Dose: Not Given Documented by: Lidocaine HCl (Xylocaine-Mpf 1%) 5 ml INJECT ONETIME ONE Stop: 05/28/20 14:28 Last Admin: 05/28/20 14:43 Dose: 5 ml Documented by: Non-Formulary Medication (Amiodarone [Pacerone]) 200 mg PO BID [facility] Non-Formulary Medication (Isosorbide Mononitrate [Imdur]) 1 tab PO DAILY [facility] Last Admin: 05/28/20 20:36 Dose: Not Given Documented by: Non-Formulary Medication (Metformin [Glucophage Xr]) 500 mg PO DAILY [facility] Non-Formulary Medication (Simvastatin [Zocor]) 10 mg PO BEDTIME [facility] Potassium Chloride (Klor-Con M20) 40 meq PO ONETIME ONE Stop: 05/29/20 12:01 Last Admin: 05/29/20 12:20 Dose: 40 meq Documented by: Simvastatin (Zocor) Confirm Administered Dose 20 mg .ROUTE .STK-MED ONE Stop: 05/28/20 20:22 Last Admin: 05/28/20 20:34 Dose: Not Given Documented by: Sodium Chloride (Saline Flush) 10 ml FLUSH ASDIRECTED PRN PRN Reason: Keep Vein Open Last Admin: 05/28/20 13:20 Dose: 10 ml Documented by: - Exam Quality Assessment: Supplemental Oxygen General: Alert, Cooperative, No Acute Distress Lungs: Normal Respiratory Effort, Decreased Breath Sounds (left lower lung ), Crackles (left lower lung ) Cardiovascular: Regular Rate, Regular Rhythm GI/Abdominal Exam: Soft, No Distention Extremities: Pedal Edema. No: Increased Warmth Skin: Warm, Dry Psy/Mental Status: Alert, Normal Affect Sepsis Event Note - Evaluation Sepsis Screening Result: No Definite Risk - Focused Exam Vital Signs: Vital Signs Temp Temp Pulse Pulse Resp BP BP 05/31/20 10:41 36.2 C 61 16 111/60 12/16/20 08:24 134/70 05/31/20 08:23 70 134/70 05/31/20 08:22 134/70 05/31/20 06:59 37.1 C 70 16 134/70 05/31/20 04:54 05/31/20 04:51 100.2 C H 05/31/20 02:00 37.4 C 64 17 144/77 H Pulse Ox 05/31/20 10:41 98 05/31/20 08:24 05/31/20 08:23 05/31/20 08:22 05/31/20 06:59 95 05/31/20 04:54 90 L 05/31/20 04:51 05/31/20 02:00 85 L - Problem List Review Problem List Initiated/Reviewed/Updated: Yes - My Orders Last 24 Hours: My Active Orders 05/30/20 12:18 Discontinue Telemetry Monitoring [Cardiac Monitoring Discontinue] [RC] Click to Edit 05/31/20 12:23 Furosemide [Lasix] 60 mg IVPUSH ONETIME ONE 05/31/20 21:00 Doxycycline [Vibramycin] 100 mg PO BID 06/01/20 05:00 BASIC METABOLIC PANEL,BMP [CHEM] Timed - Plan Plan:: ASSESSMENT AND PLAN LEFT LUNG PNEUMONIA-complicated by acute respiratory failure with hypoxia. Oxygenation is slightly better again today. Symptomatically feeling well. -Continue ceftriaxone and doxycycline -Supplement oxygen, wean as able -blood cultures if he has a fever CONGESTIVE HEART FAILURE, COMBINED-Mild evidence for volume overload again today. -Dose of furosemide this morning -KELLEY stockings -Continue beta-deeede therapy -2 g sodium diet FALL-he experienced a laceration on his left hand that has been sutured by Dr. Gao. No significant pain. -Pain control -Suture removal 06/05 TYPE 2 DIABETES MELLITUS -Continue Metformin -4 times daily glucometers CHRONIC KIDNEY DISEASE STAGE III-creatinine stable. -Closely monitor urine output and renal function MAINTENANCE ISSUES -DVT prophylaxis; enoxaparin 40 mg subcu daily -GI prophylaxis; not indicated -Anderson catheter; not indicated -Nutrition; 2 g sodium diet DISPOSITION-anticipate discharge to home possibly with home care after the hospital stay. Danielito Birch MD
[2020-05-31] MEDS ORDERED: Furosemide 20 MG/2 ML VIAL IVPUSH ONE (12:30)
[2020-05-31] MEDS: Enoxaparin 40 MG/0.4 ML Syringe SUBCUT SCH (17:02)
[2020-05-31] MEDS: Doxycycline 100 MG Cap PO SCH (21:20)
[2020-05-31] MEDS: Simvastatin 20 MG Tab PO SCH (21:25)
[2020-06-01] MEDS: metFORMIN 500 MG Tab PO SCH ×2 (07:35→17:43)
[2020-06-01] MEDS ORDERED: Furosemide 100 MG/10 ML SDV IVPUSH ONE (09:00)
[2020-06-01] MEDS: Spironolactone 25 MG Tab PO SCH (09:14)
[2020-06-01] MEDS: Amiodarone 200 MG Tab PO SCH ×2 (09:15→21:28)
[2020-06-01] MEDS: Carvedilol 3.125 MG Tab PO SCH ×2 (09:16→21:28)
[2020-06-01] MEDS: Tamsulosin 0.4 MG Cap.ER PO SCH ×2 (09:17→21:28)
[2020-06-01] MEDS: Ferrous Sulfate 325 MG Tab PO SCH ×2 (09:17→21:28)
[2020-06-01] MEDS: amLODIPine 5 MG Tab PO SCH (09:18)
[2020-06-01] MEDS: Isosorbide Mononitrate 30 MG Tab.ER PO SCH (09:18)
[2020-06-01] MEDS: Aspirin 81 MG Tab.EC PO SCH (09:18)
[2020-06-01] MEDS: hydrALAZINE 10 MG Tab PO SCH (09:19)
[2020-06-01] MEDS: Doxycycline 100 MG Cap PO SCH ×2 (09:19→21:28)
[2020-06-01] MEDS: cefTRIAXone 1 GM in Sodium Chloride 0.9% 50 ML IV SCH (10:00)
--- NOTE | 2020-06-01 10:34 | PCM.PN ---
- General Info Date of Service: 06/01/20 Subjective Update: No acute events overnight. Oxygenation continues to improve but has not quite normalized. Still requiring 3 L of oxygen as of this morning. Symptomatically he is feeling well. He does not feel short of breath. Only has an occasional cough. Strength and appetite are improving. No fevers overnight. Tolerating current antibiotics. Functional Status: Reports: Pain Controlled, Tolerating Diet - Review of Systems General: Reports: Weakness Pulmonary: Denies: Shortness of Breath - Patient Data Vitals - Most Recent: Last Vital Signs Temp 37.3 C 06/01/20 07:00 Pulse 62 06/01/20 09:16 Resp 24 H 06/01/20 07:00 BP 148/76 H 06/01/20 09:19 Pulse Ox 93 L 06/01/20 07:00 Weight - Most Recent: 85.91 kg I&O - Last 24 Hours: Intake & Output 05/31/20 06/01/20 06/01/20 22:59 06:59 14:59 Intake Total 1080 Output Total 800 580 150 Balance 280 -580 -150 Lab Results Last 24 Hours: Laboratory Results - last 24 hr 06/01/20 Range/Units 04:33 Sodium 141 (140-148) mmol/L Potassium 3.9 (3.6-5.2) mmol/L Chloride 105 (100-108) mmol/L Carbon Dioxide 27 (21-32) mmol/L Anion Gap 9.3 (5.0-14.0) mmol/L BUN 31 H (7-18) mg/dL Creatinine 1.2 (0.8-1.3) mg/dL Est Cr Clr Drug Dosing 49.92 mL/min Estimated GFR (MDRD) 58 L (>60) Glucose 149 H (74-106) mg/dL Calcium 8.2 L (8.5-10.1) mg/dL Med Orders - Current: Current Medications Acetaminophen (Tylenol) 650 mg PO Q4H PRN PRN Reason: Pain (Mild 1-3)/fever Last Admin: 05/31/20 04:51 Dose: 650 mg Documented by: Albuterol (Proventil Neb Soln) 2.5 mg NEB Q4H PRN PRN Reason: Shortness Of Breath/wheezing Amiodarone HCl (Cordarone) 200 mg PO BID [facility] Last Admin: 06/01/20 09:15 Dose: 200 mg Documented by: Amlodipine Besylate (Norvasc) 5 mg PO DAILY [facility] Last Admin: 06/01/20 09:18 Dose: 5 mg Documented by: Aspirin (Halfprin) 81 mg PO DAILY [facility] Last Admin: 06/01/20 09:18 Dose: 81 mg Documented by: Carvedilol (Coreg) 6.25 mg PO BID [facility] Last Admin: 06/01/20 09:16 Dose: 6.25 mg Documented by: Dextrose (Glutose 15) 15 gm PO ONETIME PRN PRN Reason: Hypoglycemia Dextrose/Water (Dextrose 50% In Water) 50 ml IV ONETIME PRN PRN Reason: Hypoglycemia Doxycycline Hyclate (Vibramycin) 100 mg PO BID [facility] Last Admin: 06/01/20 09:19 Dose: 100 mg Documented by: Enoxaparin Sodium (Lovenox) 40 mg SUBCUT Q24H [facility] Last Admin: 05/31/20 17:02 Dose: 40 mg Documented by: Ferrous Sulfate (Ferrous Sulfate) 325 mg PO BID [facility] Last Admin: 06/01/20 09:17 Dose: 325 mg Documented by: Hydralazine HCl (Apresoline) 10 mg PO DAILY [facility] Last Admin: 06/01/20 09:19 Dose: 10 mg Documented by: Isosorbide Mononitrate (Imdur) 60 mg PO DAILY [facility] Last Admin: 06/01/20 09:18 Dose: 60 mg Documented by: Metformin HCl (Glucophage) 250 mg PO BIDMEALS [facility] Last Admin: 06/01/20 07:35 Dose: 250 mg Documented by: Ondansetron HCl (Zofran) 4 mg IV Q4H PRN PRN Reason: Nausea/Vomiting Polyethylene Glycol (Miralax) 17 gm PO DAILY PRN PRN Reason: Constipation Simvastatin (Zocor) 10 mg PO BEDTIME [facility] Last Admin: 05/31/20 21:25 Dose: 10 mg Documented by: Sodium Chloride (Saline Flush) 10 ml FLUSH ASDIRECTED PRN PRN Reason: Keep Vein Open Spironolactone (Aldactone) 12.5 mg PO DAILY [facility] Last Admin: 06/01/20 09:14 Dose: 12.5 mg Documented by: Tamsulosin HCl (Flomax) 0.4 mg PO BID [facility] Last Admin: 06/01/20 09:17 Dose: 0.4 mg Documented by: Discontinued Medications Albuterol (Proventil Neb Soln) 2.5 mg NEB ONETIME ONE Stop: 05/28/20 12:46 Last Admin: 05/28/20 13:20 Dose: 2.5 mg Documented by: Amiodarone HCl (Cordarone) Confirm Administered Dose 200 mg .ROUTE .STK-MED ONE Stop: 05/28/20 20:23 Last Admin: 05/28/20 20:32 Dose: Not Given Documented by: Bacitracin (Bacitracin Oint 1 Gm) 1 dose TOP ONETIME ONE Stop: 05/28/20 14:29 Last Admin: 05/28/20 14:43 Dose: 1 dose Documented by: Carvedilol (Coreg) 6.25 mg PO BID [facility] Last Admin: 05/28/20 20:30 Dose: 6.25 mg Documented by: Enoxaparin Sodium (Lovenox) 40 mg SUBCUT DAILY [facility] Last Admin: 05/28/20 19:49 Dose: 40 mg Documented by: Furosemide (Lasix) 60 mg IVPUSH ONETIME ONE Stop: 05/28/20 12:48 Last Admin: 05/28/20 13:20 Dose: 60 mg Documented by: Furosemide (Lasix) 40 mg IVPUSH NOW ONE Stop: 05/28/20 21:01 Last Admin: 05/28/20 20:25 Dose: 40 mg Documented by: Furosemide (Lasix) 40 mg IVPUSH NOW ONE Stop: 05/30/20 12:21 Last Admin: 05/30/20 12:53 Dose: 40 mg Documented by: Furosemide (Lasix) 60 mg IVPUSH ONETIME ONE Stop: 05/31/20 12:31 Last Admin: 05/31/20 13:31 Dose: 60 mg Documented by: Furosemide (Lasix) 60 mg IVPUSH ONETIME ONE Stop: 06/01/20 09:01 Doxycycline Hyclate 100 mg/ (Sodium Chloride) 100 mls @ 100 mls/hr IV Q12H [facility] Last Admin: 05/31/20 09:20 Dose: 100 mls/hr Documented by: Ceftriaxone Sodium 1 gm/ (Sodium Chloride) 50 mls @ 100 mls/hr IV Q24H [facility] Last Admin: 05/31/20 08:29 Dose: 100 mls/hr Documented by: Insulin Human Lispro (Humalog) 0 unit SUBCUT QIDACANDBED [facility]; Protocol Last Admin: 05/29/20 11:46 Dose: Not Given Documented by: Lidocaine HCl (Xylocaine-Mpf 1%) 5 ml INJECT ONETIME ONE Stop: 05/28/20 14:28 Last Admin: 05/28/20 14:43 Dose: 5 ml Documented by: Non-Formulary Medication (Amiodarone [Pacerone]) 200 mg PO BID [facility] Non-Formulary Medication (Isosorbide Mononitrate [Imdur]) 1 tab PO DAILY [facility] Last Admin: 05/28/20 20:36 Dose: Not Given Documented by: Non-Formulary Medication (Metformin [Glucophage Xr]) 500 mg PO DAILY [facility] Non-Formulary Medication (Simvastatin [Zocor]) 10 mg PO BEDTIME [facility] Potassium Chloride (Klor-Con M20) 40 meq PO ONETIME ONE Stop: 05/29/20 12:01 Last Admin: 05/29/20 12:20 Dose: 40 meq Documented by: Simvastatin (Zocor) Confirm Administered Dose 20 mg .ROUTE .STK-MED ONE Stop: 05/28/20 20:22 Last Admin: 05/28/20 20:34 Dose: Not Given Documented by: Sodium Chloride (Saline Flush) 10 ml FLUSH ASDIRECTED PRN PRN Reason: Keep Vein Open Last Admin: 05/28/20 13:20 Dose: 10 ml Documented by: - Exam Quality Assessment: Supplemental Oxygen General: Alert, Oriented, Cooperative, No Acute Distress Lungs: Normal Respiratory Effort, Crackles (few right lung base) Cardiovascular: Regular Rate, Regular Rhythm GI/Abdominal Exam: Soft, No Distention Extremities: Pedal Edema. No: Increased Warmth Skin: Warm, Dry Psy/Mental Status: Alert, Normal Affect Sepsis Event Note - Evaluation Sepsis Screening Result: No Definite Risk - Focused Exam Vital Signs: Vital Signs Temp Pulse Pulse Resp BP BP Pulse Ox 06/01/20 09:19 148/76 H 06/01/20 09:18 148/76 H 06/01/20 09:16 62 148/76 H 06/01/20 07:00 37.3 C 69 24 H 148/76 H 93 L 06/01/20 02:32 36.6 C 73 18 148/64 H 94 L 05/31/20 22:46 36.4 C 68 16 143/65 H 95 - Problem List Review Problem List Initiated/Reviewed/Updated: Yes - My Orders Last 24 Hours: My Active Orders 05/31/20 12:25 Antiembolic Devices [RC] .Routine KELLEY Hose [Antiembolic Hose] [OM.PC] Routine 05/31/20 21:00 Doxycycline [Vibramycin] 100 mg PO BID 06/01/20 10:34 PT Evaluation and Treatment [CONS] Routine 06/02/20 09:00 Cefdinir [Omnicef] 300 mg PO BID - Plan Plan:: ASSESSMENT AND PLAN LEFT LUNG PNEUMONIA-complicated by acute respiratory failure with hypoxia. Oxygenation steadily improving but still requiring supplemental oxygen. No fevers. -Continue ceftriaxone and doxycycline today -Transition to cefdinir and doxycycline starting tomorrow morning -Supplement oxygen, wean as able -blood cultures if he has a fever CONGESTIVE HEART FAILURE, COMBINED-Mild evidence for volume overload again today. -Dose of furosemide this morning -KELLEY stockings -Continue beta-deedee therapy -2 g sodium diet FALL-he experienced a laceration on his left hand that has been sutured by Dr. Gao. No significant pain. -Pain control -Suture removal 06/05 TYPE 2 DIABETES MELLITUS -Continue Metformin -4 times daily glucometers CHRONIC KIDNEY DISEASE STAGE III-creatinine stable. -Closely monitor urine output and renal function MAINTENANCE ISSUES -DVT prophylaxis; enoxaparin 40 mg subcu daily -GI prophylaxis; not indicated -Anderson catheter; not indicated -Nutrition; 2 g sodium diet DISPOSITION-anticipate discharge to home with home care after the hospital stay. I would anticipate he will be ready for discharge tomorrow Danielito Birch MD
[2020-06-01] MEDS: Enoxaparin 40 MG/0.4 ML Syringe SUBCUT SCH (17:43)
[2020-06-01] MEDS: Simvastatin 20 MG Tab PO SCH (21:28)
[2020-06-02] MEDS ORDERED: Cefdinir 300 MG Cap PO SCH (09:00)
[2020-06-02] MEDS: Doxycycline 100 MG Cap PO SCH (09:11)
[2020-06-02] MEDS: amLODIPine 5 MG Tab PO SCH (09:11)
[2020-06-02] MEDS: Amiodarone 200 MG Tab PO SCH (09:11)
[2020-06-02] MEDS: metFORMIN 500 MG Tab PO SCH (09:11)
[2020-06-02] MEDS: Aspirin 81 MG Tab.EC PO SCH (09:12)
[2020-06-02] MEDS: hydrALAZINE 10 MG Tab PO SCH (09:12)
[2020-06-02] MEDS: Tamsulosin 0.4 MG Cap.ER PO SCH (09:12)
[2020-06-02] MEDS: Isosorbide Mononitrate 30 MG Tab.ER PO SCH (09:12)
[2020-06-02] MEDS: Carvedilol 3.125 MG Tab PO SCH (09:12)
[2020-06-02] MEDS: Ferrous Sulfate 325 MG Tab PO SCH (09:13)
[2020-06-02] MEDS: Spironolactone 25 MG Tab PO SCH (09:13)
--- NOTE | 2020-06-02 11:58 | PCM.DCSUM1 ---
Discharge Summary - Hospital Course Brief History: 79-year-old male with history of controlled type 2 diabetes mellitus, coronary artery disease who presented with increasing shortness of breath and lower extremity edema. He was admitted for management of suspected congestive heart failure complicated by acute respiratory failure with hypoxia. Diagnosis: Stroke: No - Discharge Data Discharge Date: 06/02/20 Discharge Disposition: Home, W Home Health Agency 06 Condition: Good - Referral to Home Health Date of Face to Face Encounter: 06/02/20 Reason for Homebound Status: Left lung pneumonia, combined systolic and diastolic congestive heart failure Primary Care Physician: David Vigil MD Skilled Need: Nursing and PT - Patient Summary/Data Consults: Consultations 06/01/20 10:34 PT Evaluation and Treatment [CONS] Routine Please Evaluate and Treat. PT Reason for Consult: Strengthening This query below is only for informational purposes and is not editable. Admission Diagnosis/Problem: CHF, Congestive heart failure Hospital Course: [place] presented to the emergency room with progressive weakness, cough and shortness of breath as well as lower extremity edema. Initial work-up in the emergency room raised concern for an exacerbation of congestive heart failure with his edema, mild pulmonary edema hypoxia and elevated BNP. His respiratory status was somewhat tenuous at presentation and he did require noninvasive ventilation. Initially most signs pointed towards congestive heart failure so he was given diuretics and admitted to the hospital for further management. Overnight following admission he did spike a fever and review of his chest x-ray raised concern for left-sided pneumonia. He was started on ceftriaxone and doxycycline. By this point fortunately his respiratory status had stabilized and he no longer required noninvasive ventilation. Over the next few days we saw a slow but steady improvement. His oxygenation steadily improved and we were able to wean down the supplemental oxygen. His fever curve improved shortly after antibiotics were initiated. He did require several doses of IV furosemide to help manage mild volume overload during the course of the hospital stay but volume status seems to be fairly appropriate at the time of discharge. We did get an echocardiogram which showed a mild reduction in his ejection fraction at 45%. He had grade 2 diastolic heart function as well as moderate TR and MR. By the end of the hospital stay he was feeling well. He was ambulating in the halls without oxygen. His appetite was good. We were able to wean him off supplemental oxygen. He feels ready to go home and I believe he is stable and safe for discharge at this point. He will be going home with some home care to help assist his transition home. He will be on antibiotics for a few more days after hospital discharge as outlined in the medication section. - Patient Instructions Diet: Diabetic Diet Activity: As Tolerated Driving: May Drive Today Showering/Bathing: May Shower Notify Provider of: Fever, Increased Pain Other/Special Instructions: 1. You were in the hospital for management of left lung pneumonia complicated by acute respiratory failure with hypoxia. Your condition has been improving with antibiotic therapy. I do recommend that we continue 2 different antibiotics after hospital discharge. Please take cefdinir 300 mg and doxycycline 100 mg twice daily with food for 5 more doses. Your first dose outside of the hospital will be due tonight. You may increase your activity as tolerated. I encourage you to remain active to avoid a decline in your muscle strength. 2. During the hospital stay there was some concern for congestive heart failure. You did have some evidence for excess volume which has improved with diuretic therapy. We did perform an echocardiogram which showed a mild reduction in your ejection fraction consistent with mild congestive heart failure. I did provide a prescription for furosemide (Lasix) which you can take daily as needed if you start to develop lower extremity swelling. 3. Continue your other home medications as previously prescribed. 4. I have placed a referral to home health care services. They will provide nursing and physical therapy services to help ease your transition home. - Discharge Plan *PRESCRIPTION DRUG MONITORING PROGRAM REVIEWED*: Not Applicable *COPY OF PRESCRIPTION DRUG MONITORING REPORT IN PATIENT ELSIE: Not Applicable Prescriptions/Med Rec: Furosemide 40 mg PO DAILY PRN #30 tablet PRN Reason: Edema Cefdinir [Omnicef] 300 mg PO BID #5 cap Doxycycline [Vibramycin] 100 mg PO BID #5 cap Home Medications: Home Meds Simvastatin [Zocor] 10 mg PO BEDTIME 12/22/13 [History] Tamsulosin [Flomax] 0.4 mg PO BID 12/22/13 [History] carvediloL [Coreg] 6.25 mg PO BID 12/22/13 [History] hydrALAZINE [Apresoline] 10 mg PO DAILY 12/22/13 [History] metFORMIN [Glucophage XR] 500 mg PO DAILY 12/22/13 [History] Amiodarone [Pacerone] 200 mg PO BID 09/14/17 [History] Isosorbide Mononitrate [Imdur] 1 tab PO DAILY 02/21/20 [History] Aspirin [Halfprin] 81 mg PO DAILY 04/02/20 [History] Ferrous Sulfate [Iron] 325 mg PO BID 04/02/20 [History] amLODIPine [Norvasc] 5 mg PO DAILY 04/02/20 [History] Spironolactone [Aldactone] 12.5 mg PO DAILY 05/28/20 [History] Cefdinir [Omnicef] 300 mg PO BID #5 cap 06/02/20 [Rx] Doxycycline [Vibramycin] 100 mg PO BID #5 cap 06/02/20 [Rx] Furosemide 40 mg PO DAILY PRN #30 tablet 06/02/20 [Rx] Patient Handouts: Cefdinir capsules, Doxycycline tablets or capsules, Community-Acquired Pneumonia, Adult Referrals: David Vigil MD [Primary Care Provider] - 06/12/20 1:00 pm (Please arrive 15 minutes early to register for your appointment.) Win Gusman MD [Physician] - 06/05/20 3:20 pm (Your appointment with Dr. Gusman is to remove stitches.) - Discharge Summary/Plan Comment DC Time >30 min.: Yes (35-home care) - Patient Data Vitals - Most Recent: Last Vital Signs Temp 36.9 C 06/02/20 10:06 Pulse 87 06/02/20 10:06 Resp 18 06/02/20 10:06 BP 143/66 H 06/02/20 10:06 Pulse Ox 92 L 06/02/20 10:06 Weight - Most Recent: 85.91 kg I&O - Last 24 hours: Intake & Output 06/01/20 06/02/20 06/02/20 22:59 06:59 14:59 Intake Total 450 Output Total 500 650 Balance -50 -650 Med Orders - Current: Current Medications Acetaminophen (Tylenol) 650 mg PO Q4H PRN PRN Reason: Pain (Mild 1-3)/fever Last Admin: 05/31/20 04:51 Dose: 650 mg Documented by: Albuterol (Proventil Neb Soln) 2.5 mg NEB Q4H PRN PRN Reason: Shortness Of Breath/wheezing Amiodarone HCl (Cordarone) 200 mg PO BID [facility] Last Admin: 06/02/20 09:11 Dose: 200 mg Documented by: Amlodipine Besylate (Norvasc) 5 mg PO DAILY [facility] Last Admin: 06/02/20 09:11 Dose: 5 mg Documented by: Aspirin (Halfprin) 81 mg PO DAILY [facility] Last Admin: 06/02/20 09:12 Dose: 81 mg Documented by: Carvedilol (Coreg) 6.25 mg PO BID [facility] Last Admin: 06/02/20 09:12 Dose: 6.25 mg Documented by: Cefdinir (Omnicef) 300 mg PO BID [facility] Last Admin: 06/02/20 09:13 Dose: 300 mg Documented by: Dextrose (Glutose 15) 15 gm PO ONETIME PRN PRN Reason: Hypoglycemia Dextrose/Water (Dextrose 50% In Water) 50 ml IV ONETIME PRN PRN Reason: Hypoglycemia Doxycycline Hyclate (Vibramycin) 100 mg PO BID [facility] Last Admin: 06/02/20 09:11 Dose: 100 mg Documented by: Enoxaparin Sodium (Lovenox) 40 mg SUBCUT Q24H [facility] Last Admin: 06/01/20 17:43 Dose: 40 mg Documented by: Ferrous Sulfate (Ferrous Sulfate) 325 mg PO BID [facility] Last Admin: 06/02/20 09:13 Dose: 325 mg Documented by: Hydralazine HCl (Apresoline) 10 mg PO DAILY [facility] Last Admin: 06/02/20 09:12 Dose: 10 mg Documented by: Isosorbide Mononitrate (Imdur) 60 mg PO DAILY [facility] Last Admin: 06/02/20 09:12 Dose: 60 mg Documented by: Metformin HCl (Glucophage) 250 mg PO BIDMEALS [facility] Last Admin: 06/02/20 09:11 Dose: 250 mg Documented by: Ondansetron HCl (Zofran) 4 mg IV Q4H PRN PRN Reason: Nausea/Vomiting Polyethylene Glycol (Miralax) 17 gm PO DAILY PRN PRN Reason: Constipation Simvastatin (Zocor) 10 mg PO BEDTIME [facility] Last Admin: 06/01/20 21:28 Dose: 10 mg Documented by: Sodium Chloride (Saline Flush) 10 ml FLUSH ASDIRECTED PRN PRN Reason: Keep Vein Open Spironolactone (Aldactone) 12.5 mg PO DAILY [facility] Last Admin: 06/02/20 09:13 Dose: 12.5 mg Documented by: Tamsulosin HCl (Flomax) 0.4 mg PO BID [facility] Last Admin: 06/02/20 09:12 Dose: 0.4 mg Documented by: Discontinued Medications Albuterol (Proventil Neb Soln) 2.5 mg NEB ONETIME ONE Stop: 05/28/20 12:46 Last Admin: 05/28/20 13:20 Dose: 2.5 mg Documented by: Amiodarone HCl (Cordarone) Confirm Administered Dose 200 mg .ROUTE .STK-MED ONE Stop: 05/28/20 20:23 Last Admin: 05/28/20 20:32 Dose: Not Given Documented by: Bacitracin (Bacitracin Oint 1 Gm) 1 dose TOP ONETIME ONE Stop: 05/28/20 14:29 Last Admin: 05/28/20 14:43 Dose: 1 dose Documented by: Carvedilol (Coreg) 6.25 mg PO BID [facility] Last Admin: 05/28/20 20:30 Dose: 6.25 mg Documented by: Enoxaparin Sodium (Lovenox) 40 mg SUBCUT DAILY [facility] Last Admin: 05/28/20 19:49 Dose: 40 mg Documented by: Furosemide (Lasix) 60 mg IVPUSH ONETIME ONE Stop: 05/28/20 12:48 Last Admin: 05/28/20 13:20 Dose: 60 mg Documented by: Furosemide (Lasix) 40 mg IVPUSH NOW ONE Stop: 05/28/20 21:01 Last Admin: 05/28/20 20:25 Dose: 40 mg Documented by: Furosemide (Lasix) 40 mg IVPUSH NOW ONE Stop: 05/30/20 12:21 Last Admin: 05/30/20 12:53 Dose: 40 mg Documented by: Furosemide (Lasix) 60 mg IVPUSH ONETIME ONE Stop: 05/31/20 12:31 Last Admin: 05/31/20 13:31 Dose: 60 mg Documented by: Furosemide (Lasix) 60 mg IVPUSH ONETIME ONE Stop: 06/01/20 09:01 Last Admin: 06/01/20 10:00 Dose: 60 mg Documented by: Doxycycline Hyclate 100 mg/ (Sodium Chloride) 100 mls @ 100 mls/hr IV Q12H [facility] Last Admin: 05/31/20 09:20 Dose: 100 mls/hr Documented by: Ceftriaxone Sodium 1 gm/ (Sodium Chloride) 50 mls @ 100 mls/hr IV Q24H [facility] Last Admin: 06/01/20 10:00 Dose: 100 mls/hr Documented by: Insulin Human Lispro (Humalog) 0 unit SUBCUT QIDACANDBED [facility]; Protocol Last Admin: 05/29/20 11:46 Dose: Not Given Documented by: Lidocaine HCl (Xylocaine-Mpf 1%) 5 ml INJECT ONETIME ONE Stop: 05/28/20 14:28 Last Admin: 05/28/20 14:43 Dose: 5 ml Documented by: Non-Formulary Medication (Amiodarone [Pacerone]) 200 mg PO BID [facility] Non-Formulary Medication (Isosorbide Mononitrate [Imdur]) 1 tab PO DAILY [facility] Last Admin: 05/28/20 20:36 Dose: Not Given Documented by: Non-Formulary Medication (Metformin [Glucophage Xr]) 500 mg PO DAILY [facility] Non-Formulary Medication (Simvastatin [Zocor]) 10 mg PO BEDTIME [facility] Potassium Chloride (Klor-Con M20) 40 meq PO ONETIME ONE Stop: 05/29/20 12:01 Last Admin: 05/29/20 12:20 Dose: 40 meq Documented by: Simvastatin (Zocor) Confirm Administered Dose 20 mg .ROUTE .STK-MED ONE Stop: 05/28/20 20:22 Last Admin: 05/28/20 20:34 Dose: Not Given Documented by: Sodium Chloride (Saline Flush) 10 ml FLUSH ASDIRECTED PRN PRN Reason: Keep Vein Open Last Admin: 05/28/20 13:20 Dose: 10 ml Documented by:
== END 2020-06-02 13:30 | disposition home health service (06) | DRG 291 ==
LOC: JP.ED 12:00 → JP.MS 18:08
PROVIDERS: ADMIT Hospitalist; ATTEND Internal Medicine
PROC: 5A09457 Assistance with Respiratory Ventilation, 24-96 Consecutive Hours, Continuous Positive Airway Pressure (ICD-10-PCS; principal; 2020-05-28)
DX: I13.0 Hypertensive heart and chronic kidney disease with heart failure and stage 1 through stage 4 chronic kidney disease, or unspecified chronic kidney disease (principal); J96.00 Acute respiratory failure, unspecified whether with hypoxia or hypercapnia; I11.0 Hypertensive heart disease with heart failure; I25.10 Atherosclerotic heart disease of native coronary artery without angina pectoris; I50.9 Heart failure, unspecified; N18.30 Chronic kidney disease, stage 3 unspecified; H91.90 Unspecified hearing loss, unspecified ear; H54.7 Unspecified visual loss; E78.00 Pure hypercholesterolemia, unspecified; K57.90 Diverticulosis of intestine, part unspecified, without perforation or abscess without bleeding; I25.2 Old myocardial infarction; E11.22 Type 2 diabetes mellitus with diabetic chronic kidney disease; Z96.659 Presence of unspecified artificial knee joint; R32 Unspecified urinary incontinence; M19.90 Unspecified osteoarthritis, unspecified site; E11.9 Type 2 diabetes mellitus without complications; Z98.49 Cataract extraction status, unspecified eye; W19.XXXA Unspecified fall, initial encounter; S61.218A Laceration without foreign body of other finger without damage to nail, initial encounter; Z95.5 Presence of coronary angioplasty implant and graft; Z88.8 Allergy status to other drugs, medicaments and biological substances; Z79.84 Long term (current) use of oral hypoglycemic drugs; Z79.82 Long term (current) use of aspirin; Z79.899 Other long term (current) drug therapy; Z20.828 Contact with and (suspected) exposure to other viral communicable diseases
CPT/HCPCS: 36415; 36600; 71045 ×2; 80053; 81001; 82803; 83880; 85025; 87635 ×2; 93005; 93010; 94640; J1940; J2001; 73080-26-LT; 73080-LT; 73502-26-RT; 73502-RT; 80048; 82962; 83735; 85027; 93306; 94762; 97116-GP; 97162-GP; 97530-GP; 97535-GP; 99222-AI; 99231; 99232; 99239; A9270-GY; J0696; J1650; J1815; J3490; U0002

== ENCOUNTER 2020-07-24 14:37 | Emergency (ER) | payer OTHER ==
[2020-07-24] MEDS ORDERED: Bacitracin Oint 1 GM U/D Packet TOP ONE (15:25)
--- NOTE | 2020-07-24 15:28 | EDM.PDOC ---
ED HPI GENERAL MEDICAL PROBLEM - General Chief Complaint: Laceration Stated Complaint: FELL HIT HEAD VIA [facility] Time Seen by Provider: 07/24/20 15:20 Source of Information: Reports: Patient, Family, RN Notes Reviewed History Limitations: Reports: No Limitations - History of Present Illness INITIAL COMMENTS - FREE TEXT/NARRATIVE: 79-year-old gentleman presents emergency department today following a fall, he tripped over the curb fell and hit his head landing on the left occipital region bleeding is controlled by the time he arrives in the emergency department. He was brought in by EMS services, he has no other complaints he does take blood thinner of Eliquis - Related Data Allergies Allergy/AdvReac Type Severity Reaction Status Date / Time clonidine Allergy Unknown Rash Verified 07/24/20 14:43 lisinopril Allergy Unknown Rash Verified 07/24/20 14:43 Home Meds: Home Meds Simvastatin [Zocor] 10 mg PO BEDTIME 12/22/13 [History] Tamsulosin [Flomax] 0.4 mg PO BID 12/22/13 [History] carvediloL [Coreg] 6.25 mg PO BID 12/22/13 [History] hydrALAZINE [Apresoline] 10 mg PO DAILY 12/22/13 [History] metFORMIN [Glucophage XR] 500 mg PO DAILY 12/22/13 [History] Amiodarone [Pacerone] 200 mg PO BID 09/14/17 [History] Isosorbide Mononitrate [Imdur] 1 tab PO DAILY 02/21/20 [History] Aspirin [Halfprin] 81 mg PO DAILY 04/02/20 [History] Ferrous Sulfate [Iron] 325 mg PO BID 04/02/20 [History] amLODIPine [Norvasc] 5 mg PO DAILY 04/02/20 [History] Spironolactone [Aldactone] 12.5 mg PO DAILY 05/28/20 [History] Cefdinir [Omnicef] 300 mg PO BID #5 cap 06/02/20 [Rx] Doxycycline [Vibramycin] 100 mg PO BID #5 cap 06/02/20 [Rx] Furosemide 40 mg PO DAILY PRN #30 tablet 06/02/20 [Rx] Apixaban [Eliquis] 5 mg PO BID 07/24/20 [History] Past Medical History HEENT History: Reports: Hard of Hearing, Impaired Vision Cardiovascular History: Reports: CAD, High Cholesterol, Hypertension, [place], Other (See Below) Other Cardiovascular History: IMplanted defibulator Gastrointestinal History: Reports: Diverticulosis Genitourinary History: Reports: Urinary Incontinence, Other (See Below) Other Genitourinary History: frequency Musculoskeletal History: Reports: Arthritis, Fracture Other Musculoskeletal History: l tibia Endocrine/Metabolic History: Reports: Diabetes, Type II - Infectious Disease History Infectious Disease History: Reports: Chicken Pox, Measles, Mumps, Shingles - Past Surgical History Head Surgeries/Procedures: Reports: None HEENT Surgical History: Reports: Cataract Surgery Cardiovascular Surgical History: Reports: Coronary Artery Stent GI Surgical History: Reports: Colonoscopy, Hernia, Inguinal Male Surgical History: Reports: None Endocrine Surgical History: Reports: None Musculoskeletal Surgical History: Reports: Knee Replacement Dermatological Surgical History: Reports: None Social & Family History - Family History Family Medical History: Unobtainable - Caffeine Use Caffeine Use: Reports: Coffee ED ROS GENERAL - Review of Systems Review Of Systems: See Below Constitutional: Reports: No Symptoms HEENT: Reports: No Symptoms Respiratory: Reports: No Symptoms Cardiovascular: Reports: No Symptoms GI/Abdominal: Reports: No Symptoms Skin: Reports: Wound ED EXAM, SKIN/RASH Exam: See Below Text/Narrative:: Primary survey GCS 15 airways open patent and clear lungs are clear to auscultation bilaterally cardiovascular intact regular rate and rhythm S1-S2 Secondary survey General: Elderly male, not in any distress, alert and oriented x3 HEENT: head is small puncture wound is appreciated left occipital scalp bleeding is controlled normocephalic, eyes pupils equal round reactive to light, sclera clear no conjunctivitis appreciated, extraocular eye movements intact. Ears hearing aids in place bilaterally. Nose no septal deviation, nares are clear, no blood present. Mouth mucosa is moist and pink no erythema or exudate noted in soft palate, tongue is midline uvula is midline, dentition is intact. Neck: Supple no thyromegaly no tracheal deviation. Nodes: Cervical nodes subclavicular nodes nontender no palpable lymphadenopathy noted. NO posterior midline C-spine tenderness NO evidence of intoxication GCS > 14 No focal neurological deficit NO distracting injury Lungs: clear to auscultation bilaterally with symmetrical respirations, no adventitious noise appreciated. CV: Regular rate and rhythm S1 and S2 appreciated no murmurs rubs or gallops noted. Abdomen: Soft, nontender, no palpable masses or organomegaly appreciated, no distention no guarding bowel sounds are present, [scars ]. Neuro: No focal neurologic deficit Skin: Warm and dry, intact Extremities: No tenderness shoulders elbows wrists bilaterally pelvic rocks is negative no tenderness knees ankles bilaterally, Back exam no tenderness to spinal palpation no paraspinal tenderness Course - Vital Signs Last Recorded V/S: Last Vital Signs Temp 97.8 F 07/24/20 14:40 Pulse 60 07/24/20 14:40 Resp 20 07/24/20 14:40 BP 129/66 07/24/20 14:40 Pulse Ox 97 07/24/20 14:40 - Orders/Labs/Meds Meds: Medications Discontinued Medications Generic Name Dose Route Start Last Admin Trade Name Maria Esther PRN Reason Stop Dose Admin Bacitracin 1 dose 07/24/20 15:25 Bacitracin Oint 1 Gm TOP 07/24/20 15:26 ONETIME ONE Departure - Departure Time of Disposition: 16:24 Disposition: Home, Self-Care 01 Condition: Fair Clinical Impression: Head injury due to trauma Qualifiers: Encounter type: initial encounter Qualified Code(s): S09.90XA - Unspecified injury of head, initial encounter - Discharge Information Instructions: Puncture Wound, [id number] Referrals: PCP,None [Primary Care Provider] - Forms: ED Department Discharge Additional Instructions: Continue with regular medication, please followup with your primary care provider in 3-5 days if not better, please call return to the emergency department with worsening of symptoms. Sepsis Event Note (ED) - Evaluation Sepsis Screening Result: No Definite Risk - Focused Exam Vital Signs: Vital Signs Temp Pulse Resp BP Pulse Ox 07/24/20 14:40 97.8 F 60 20 129/66 97 - Assessment/Plan Plan: Assessment Acuity = acute Site and laterality = head injury risk for concussion with scalp puncture wound Etiology = secondary to fall Manifestations = none Location of injury = Home Lab values = CT scan of the head reveals no acute intracranial process Plan I did review image studies with them bacitracin was placed over his wound follow-up primary care as needed counseled on concussion This note was dictated using [employer]! voice recognition software please call with any questions on syntax or grammar.
--- NOTE | 2020-07-24 16:05 | CRLCT ---
INDICATION: Trauma, fall, laceration to back of head TECHNIQUE: CT Head without i.v. contrast. COMPARISON: 12/22/2013 FINDINGS: CSF space: Unremarkable for age. Brain: No evidence of mass, acute infarction or hemorrhage is seen. Moderate patchy regions of low attenuation are present in the periventricular white matter, likely due to chronic microvascular ischemic changes. A small stable chronic lacunar infarcts is present within the right thalamus and right caudate head. No mass-effect or midline shift is seen. Mild diffuse cortical atrophy is noted. The brain parenchyma is otherwise normal in appearance with preservation of the dias-white matter junction. Calvarium: The visualized paranasal sinuses are well aerated. The mastoid air cells are clear. The patient is status post bilateral cataract removal. The calvarium is unremarkable in appearance with no fractures identified. A small scalp hematoma is present over the left posterior vertex. IMPRESSION: 1. No evidence of acute infarction, intracranial hemorrhage, or mass-effect seen. Dictated by Valeriano Sanders MD @ 07/24/2020 4:03:43 PM Please note that all CT scans at this facility use dose modulation, iterative reconstruction, and/or weight-based dosing when appropriate to reduce radiation dose to as low as reasonably achievable. Dictated by: Valeriano Sanders MD @ 07/24/2020 16:03:54 (Electronically Signed)
== END 2020-07-24 16:43 | disposition home or self-care (01) ==
LOC: JP.ED 14:37
DX: S01.03XA Puncture wound without foreign body of scalp, initial encounter (principal); I25.10 Atherosclerotic heart disease of native coronary artery without angina pectoris; E78.00 Pure hypercholesterolemia, unspecified; I10 Essential (primary) hypertension; I25.2 Old myocardial infarction; M19.90 Unspecified osteoarthritis, unspecified site; E11.9 Type 2 diabetes mellitus without complications; Z88.8 Allergy status to other drugs, medicaments and biological substances; Z79.84 Long term (current) use of oral hypoglycemic drugs; Z79.899 Other long term (current) drug therapy; Z88.5 Allergy status to narcotic agent; Z79.82 Long term (current) use of aspirin; Z79.01 Long term (current) use of anticoagulants; W01.10XA Fall on same level from slipping, tripping and stumbling with subsequent striking against unspecified object, initial encounter
CPT/HCPCS: 70450; 99283; 99284-25

== ENCOUNTER 2021-04-24 22:14 | Emergency (ER) | payer OTHER ==
--- NOTE | 2021-04-24 23:17 | CRLCT ---
For Patients: As a result of the Century Cures Act, medical imaging exams and procedure reports are released immediately into your electronic medical record. You may view this report before your referring provider. If you have questions, please contact your health care provider. Indication: Fall, head injury, on Eliquis Technique: Nonenhanced axial CT imaging through the head. Sagittal and coronal reconstructions are provided. Comparison: CT head without contrast 07/24/2020 Findings: There is no evidence of intracranial hemorrhage or cerebral edema. Sanchez-white matter differentiation is preserved. Patchy hypoattenuation of the cerebral white matter most likely reflects chronic microvascular ischemic change. 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 There is normal size of the ventricles. The basal cisterns are patent. The calvarium is intact. The visualized paranasal sinuses and mastoid air cells are aerated. Right retroauricular scalp laceration and hematoma are noted. Impression: 1. Right retroauricular scalp laceration and hematoma. No evidence of calvarial fracture, intracranial hemorrhage, or brain contusion. 2. Chronic ischemic changes, as above. Please note that all CT scans at this facility use dose modulation, iterative reconstruction, and/or weight-based dosing when appropriate to reduce radiation dose to as low as reasonably achievable. Dictated by Caitlyn Gutierrez MD @ 04/24/2021 11:15:28 PM (Electronically Signed)
[2021-04-24 23:18] LABS: CORONAVIRUS COVID-19 NAA POSITIVE (NEGATIVE)
[2021-04-24] MEDS ORDERED: Diphtheria,Pertussis(Acell),Tetanus Vaccine 0.5 ML Syringe IM ONE (23:26)
--- NOTE | 2021-04-24 23:31 | EDM.PDOC ---
ED HPI GENERAL MEDICAL PROBLEM - General Chief Complaint: General Stated Complaint: MEDICAL VIA Time Seen by Provider: 04/24/21 22:17 Source of Information: Reports: Patient, Family History Limitations: Reports: No Limitations - History of Present Illness INITIAL COMMENTS - FREE TEXT/NARRATIVE: Israel is an 80-year-old male brought in by [facility] for evaluation of r epeated falls including the last today that involved head injury with a laceration to the right scalp over the mastoid. The patient is anticoagulated with Eliquis. He did not have any loss of consciousness. He had a fall earlier today where he landed on his right hip causing hip pain. It is unclear why he is having recurring falls. EMS also reported the patient was having memory issues, however, we do not see that on evaluating the patient. Israel has a past medical history significant for recurring falls resulting in previous head injuries, rib fractures, and a number of other soft tissue injuries. In addition he has a history for coronary artery disease, CHF, chronic atrial fibrillation, diabetes type 2, and hypertension. The patient is on long-term anticoagulation with Eliquis. He was previously on warfarin which was discontinued due to the recurring falls. He denies any fever or chills. He does have a mild headache secondary to striking his head but is answering all questions appropriately. His GCS is 15. The family was inquiring because one of the brothers thought that his eyes were not tracking properly. He does have nystagmus with lateral gaze especially towards the left. This is not associated with any vertiginous symptoms. He also has a history for diminished hearing raising the question of possible Mnire's disease. This certainly also could be playing a role in his recurrent falls. The patient has decreased sensation in lower extremities consistent with a peripheral neuropathy of diabetes which could also be contributing to recurring falls. 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(s), See EMS Report Right Headache Pain Score (Numeric/FACES): 3 - Related Data Allergies Allergy/AdvReac Type Severity Reaction Status Date / Time clonidine Allergy Unknown Rash Verified 04/24/21 22:19 lisinopril Allergy Unknown Rash Verified 04/24/21 22:19 Home Meds: Home Meds Simvastatin [Zocor] 10 mg PO BEDTIME 12/22/13 [History] Tamsulosin [Flomax] 0.4 mg PO BID 12/22/13 [History] carvediloL [Coreg] 6.25 mg PO BID 12/22/13 [History] hydrALAZINE [Apresoline] 10 mg PO DAILY 12/22/13 [History] metFORMIN [Glucophage XR] 500 mg PO DAILY 12/22/13 [History] Amiodarone [Pacerone] 200 mg PO BID 09/14/17 [History] Isosorbide Mononitrate [Imdur] 1 tab PO DAILY 02/21/20 [History] Aspirin [Halfprin] 81 mg PO DAILY 04/02/20 [History] Ferrous Sulfate [Iron] 325 mg PO BID 04/02/20 [History] amLODIPine [Norvasc] 5 mg PO DAILY 04/02/20 [History] Spironolactone [Aldactone] 12.5 mg PO DAILY 05/28/20 [History] Furosemide 40 mg PO DAILY PRN #30 tablet 06/02/20 [Rx] Apixaban [Eliquis] 5 mg PO BID 07/24/20 [History] Past Medical History HEENT History: Reports: Hard of Hearing, Impaired Vision Cardiovascular History: Reports: Afib, CAD, High Cholesterol, Hypertension, [place], Other (See Below) Other Cardiovascular History: IMplanted defibulator Gastrointestinal History: Reports: Diverticulosis Genitourinary History: Reports: Urinary Incontinence, Other (See Below) Other Genitourinary History: frequency Musculoskeletal History: Reports: Arthritis, Fracture Other Musculoskeletal History: l tibia Endocrine/Metabolic History: Reports: Diabetes, Type II - Infectious Disease History Infectious Disease History: Reports: Chicken Pox, Measles, Mumps, Shingles - Past Surgical History Head Surgeries/Procedures: Reports: None HEENT Surgical History: Reports: Cataract Surgery Cardiovascular Surgical History: Reports: Coronary Artery Stent GI Surgical History: Reports: Colonoscopy, Hernia, Inguinal Male Surgical History: Reports: None Endocrine Surgical History: Reports: None Musculoskeletal Surgical History: Reports: Knee Replacement Dermatological Surgical History: Reports: None Social & Family History - Family History Family Medical History: Unobtainable - Tobacco Use Tobacco Use Status *Q: Former Tobacco User Used Tobacco, but Quit: Yes Month/Year Tobacco Last Used: 1969 Tobacco Use Comment: Quit cigars in 2013 - Caffeine Use Caffeine Use: Reports: Coffee - Recreational Drug Use Recreational Drug Use: No ED ROS GENERAL - Review of Systems Review Of Systems: See Below Constitutional: Reports: No Symptoms HEENT: Reports: Hearing Loss (Patient has chronic hearing loss), Other (Family noted nystagmus with the patient's eye movement) Respiratory: Reports: No Symptoms Cardiovascular: Reports: No Symptoms Endocrine: Reports: No Symptoms GI/Abdominal: Reports: No Symptoms : Reports: No Symptoms Musculoskeletal: Reports: Joint Pain (Left hip pain) Skin: Reports: Wound (2.5 cm laceration over the right mastoid process on the scalp) Neurological: Reports: Headache, Difficulty Walking (Patient has had chronic difficulty with walking which may be due to peripheral neuropathy of diabetes or Mnire's disease.). Denies: Numbness, Paresthesia, Tingling, Trouble Speaking, Change in Speech Psychiatric: Reports: No Symptoms Hematologic/Lymphatic: Reports: Anemia Immunologic: Reports: No Symptoms ED EXAM, GENERAL - Physical Exam Exam: See Below Exam Limited By: No Limitations General Appearance: Alert, Anxious, Mild Distress Eye Exam: Bilateral Eye: EOMI, Nystagmus (Nystagmus with lateral gaze left greater than right.) Ears: Normal External Exam Nose: Normal Inspection Throat/Mouth: Normal Inspection, Normal Oropharynx, Normal Voice, No Airway Compromise Head: Normocephalic, Other (2.5 cm laceration over the right mastoid process with bleeding. There is tenderness to palpation over this region.) Neck: Normal Inspection, Supple, Non-Tender, Full Range of Motion Respiratory/Chest: No Respiratory Distress, Lungs Clear, Normal Breath Sounds Cardiovascular: Normal Peripheral Pulses, No Murmur, Irregularly Irregular GI/Abdominal: Normal Bowel Sounds, Soft, Non-Tender Back Exam: Normal Inspection Extremities: Normal Range of Motion, Other (Tenderness with palpation over the right hip.) Neurological: Alert, Oriented, CN II-XII Intact, Normal Cognition, No Motor/Sensory Deficits Psychiatric: Normal Affect, Normal Mood Skin Exam: Warm, Dry, Wound/Incision (2.5 cm laceration over the right mastoid process) ED GENERAL MEDICAL PROCEDURES - Laceration/Wound Repair Right Lower Lateral Head Lac/wound length in cm: 2.5 Appearance: Subcutaneous Distal NVT: Neuro & Vascular Intact Anesthetic Type: Local Local Anesthesia - Lidocaine (Xylocaine): 1% with EPI Local Anesthetic Volume: 3cc Skin Prep: Other (Soap and water) Exploration/Debridement/Repair: Wound Explored, In a Bloodless Field, Explored to Base Closed with: Sutures Suture Size: 4-0 # of Sutures: 3 Suture Type: Nylon, Interrupted Sterile Dressing Applied: Nurse Tetanus Status Addressed: Yes Complications: No Course - Vital Signs Last Recorded V/S: Last Vital Signs Temp 36.6 C 04/24/21 22:15 Pulse 78 04/24/21 22:15 Resp 24 H 04/24/21 22:15 BP 177/91 H 04/24/21 22:15 Pulse Ox 93 L 04/24/21 22:15 - Orders/Labs/Meds Orders: Active Orders 24 hr Category Date Time Status Vaccine to be Administered/Admin Charge [RC] ASDIRECTED Care 04/24/21 23:26 Ordered Hip Min 2V or 3V w Pelvis Rt [CR] Stat Exams 04/24/21 23:09 Ordered Isolation [COMM] Stat Oth 04/24/21 22:18 Ordered Labs: Laboratory Tests 04/24/21 04/24/21 04/24/21 Range/Units 22:30 22:31 22:31 WBC 6.1 (4.5-11.0) K/uL RBC 4.09 L (4.30-5.90) M/uL Hgb 12.8 (12.0-15.0) g/dL Hct 39.6 L (40.0-54.0) % MCV 97 (80-98) fL MCH 31 (27-31) pg MCHC 32 (32-36) % Plt Count 143 L (150-400) K/uL Neut % (Auto) 67.8 H (36-66) % Lymph % (Auto) 23.2 L (24-44) % Smyth % (Auto) 8.2 H (2-6) % Eos % (Auto) 0.3 L (2-4) % Baso % (Auto) 0.5 (0-1) % PT 14.4 H (9.2-10.6) sec INR 1.4 APTT 28.4 (21.4-31.8) sec Sodium (140-148) mmol/L Potassium (3.6-5.2) mmol/L Chloride (100-108) mmol/L Carbon Dioxide (21-32) mmol/L Anion Gap (5.0-14.0) mmol/L BUN (7-18) mg/dL Creatinine (0.8-1.3) mg/dL Est Cr Clr Drug Dosing mL/min Estimated GFR (MDRD) (>60) Glucose (74-106) mg/dL Calcium (8.5-10.1) mg/dL Total Bilirubin (0.2-1.0) mg/dL AST (15-37) U/L ALT (12-78) U/L Alkaline Phosphatase (46-116) U/L Total Protein (6.4-8.2) g/dL Albumin (3.4-5.0) g/dL Globulin (2.3-3.5) g/dL Albumin/Globulin Ratio (1.2-2.2) Urine Color (YELLOW) Urine Appearance (CLEAR) Urine pH (5.0-8.0) Ur Specific [place] (1.008-1.030) Urine Protein (NEGATIVE) mg/dL Urine Glucose (UA) (NEGATIVE) mg/dL Urine Ketones (NEGATIVE) mg/dL Urine Occult Blood (NEGATIVE) Urine Nitrite (NEGATIVE) Urine Bilirubin (NEGATIVE) Urine Urobilinogen (0.2-1.0) EU/dL Ur Leukocyte Esterase (NEGATIVE) Urine RBC (0-5) Urine WBC (0-5) Ur Epithelial Cells Amorphous Sediment Urine Bacteria Urine Mucus Influenza Type A RNA Negative (NEGATIVE) RSV RNA (INAAT) Negative (NEGATIVE) Influenza Type B RNA Negative (NEGATIVE) SARS-CoV-2 RNA (SANDRA) Positive H (NEGATIVE) 04/24/21 04/24/21 Range/Units 22:31 23:26 WBC (4.5-11.0) K/uL RBC (4.30-5.90) M/uL Hgb (12.0-15.0) g/dL Hct (40.0-54.0) % MCV (80-98) fL MCH (27-31) pg MCHC (32-36) % Plt Count (150-400) K/uL Neut % (Auto) (36-66) % Lymph % (Auto) (24-44) % Smyth % (Auto) (2-6) % Eos % (Auto) (2-4) % Baso % (Auto) (0-1) % PT (9.2-10.6) sec INR APTT (21.4-31.8) sec Sodium 139 L (140-148) mmol/L Potassium 4.8 (3.6-5.2) mmol/L Chloride 104 (100-108) mmol/L Carbon Dioxide 25 (21-32) mmol/L Anion Gap 14.8 H (5.0-14.0) mmol/L BUN 32 H (7-18) mg/dL Creatinine 1.6 H (0.8-1.3) mg/dL Est Cr Clr Drug Dosing 36.82 mL/min Estimated GFR (MDRD) 42 L (>60) Glucose 154 H (74-106) mg/dL Calcium 8.2 L (8.5-10.1) mg/dL Total Bilirubin 0.4 (0.2-1.0) mg/dL AST 141 H D (15-37) U/L ALT 205 H (12-78) U/L Alkaline Phosphatase 71 (46-116) U/L Total Protein 6.8 (6.4-8.2) g/dL Albumin 3.6 (3.4-5.0) g/dL Globulin 3.2 (2.3-3.5) g/dL Albumin/Globulin Ratio 1.1 L (1.2-2.2) Urine Color Yellow (YELLOW) Urine Appearance Clear (CLEAR) Urine pH 7.0 (5.0-8.0) Ur Specific [place] 1.020 (1.008-1.030) Urine Protein 100 H (NEGATIVE) mg/dL Urine Glucose (UA) Negative (NEGATIVE) mg/dL Urine Ketones Negative (NEGATIVE) mg/dL Urine Occult Blood Moderate H (NEGATIVE) Urine Nitrite Negative (NEGATIVE) Urine Bilirubin Negative (NEGATIVE) Urine Urobilinogen 2.0 H (0.2-1.0) EU/dL Ur Leukocyte Esterase Negative (NEGATIVE) Urine RBC 5-10 H (0-5) Urine WBC 0-5 (0-5) Ur Epithelial Cells Few Amorphous Sediment Few Urine Bacteria Few Urine Mucus Few Influenza Type A RNA (NEGATIVE) RSV RNA (INAAT) (NEGATIVE) Influenza Type B RNA (NEGATIVE) SARS-CoV-2 RNA (SANDRA) (NEGATIVE) Meds: Medications Discontinued Medications Generic Name Dose Route Start Last Admin Trade Name Freq PRN Reason Stop Dose Admin Diphtheria/Tetanus/Acell Pertussis 0.5 ml 04/24/21 23:26 Diphtheria,Pertussis(Acell),Tetanus Vaccine 0.5 Ml Syringe IM 04/24/21 23:27 .ONCE ONE - Radiology Interpretation Free Text/Narrative:: I reviewed the edges of the CT of the head without contrast as well as the report. The report is as follows: Findings: There is no evidence of intracranial hemorrhage or cerebral edema. Sanchez-white matter differentiation is preserved. Patchy hypoattenuation of the cerebral white matter most likely reflects chronic microvascular ischemic change. 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 There is normal size of the ventricles. The basal cisterns are patent. The calvarium is intact. The visualized paranasal sinuses and mastoid air cells are aerated. Right retroauricular scalp laceration and hematoma are noted. Impression: 1. Right retroauricular scalp laceration and hematoma. No evidence of calvarial fracture, intracranial hemorrhage, or brain contusion. 2. Chronic ischemic changes, as above. Please note that all CT scans at this facility use dose modulation, iterative reconstruction, and/or weight-based dosing when appropriate to reduce radiation dose to as low as reasonably achievable. Dictated by Caitlyn Gutierrez MD @ 04/24/2021 11:15:28 PM I reviewed the three-view x-ray of the right hip and pelvis. There is no evidence for acute fracture. - Re-Assessments/Exams Free Text/Narrative Re-Assessment/Exam: 04/24/21 23:46 I reviewed the patient's labs showing a normal CBC with a leukocyte count of 6.1, hemoglobin of 12.8, hematocrit of 39.6 and a platelet count of 143,000. The comprehensive metabolic panel shows a sodium 139, potassium 4.8, chloride 104, bicarbonate 25, BUN of 32 with a creatinine 1.6 and a glucose of 154. The GFR is calculated at 42 which would make the patient have chronic kidney disease stage IIIb. The calcium is 8.2. Liver enzymes are elevated with an AST of 141 and an ALT of 205. The alkaline phosphatase is 71. Bilirubin is normal. PT INR is 14.4/1.4. The PTT is 28.4. Concerning is the elevation of the LFTs and prolongation of the INR. The patient is positive for Covid but negative for RSV and influenza. The patient has received both vaccinations and the booster shot recently. Despite this he is still managed to contract COVID-19. He is currently asymptomatic for this. The patient did have a sizable laceration on the scalp which I repaired using 4-0 Ethilon requiring 3 simple interrupted sutures to bring the wound edges back together. We will apply likely bacitracin over this. CT of the head performed without contrast did not demonstrate any acute intracranial or calvarial abnormalities. The patient did have the laceration and hematoma over the right mastoid process. X-rays of the right hip were reviewed and show no evidence for acute osseous abnormalities. He does have osteoarthritis of the hip but no acute fracture. Urinalysis was obtained and is negative for infection. The patient will need to have the sutures removed in 7 days. He should follow-up with his primary care provider to address the recurring falls. This time he has suitable for discharge in satisfactory condition. Departure - Departure Time of Disposition: 00:03 Disposition: Home, Self-Care 01 Clinical Impression: COVID-19, Recurrent falls while walking, Contusion of right hip, initial encounter, Chronic systolic heart failure, History of atrial fibrillation, Chronic anticoagulation Superficial laceration of scalp Qualifiers: Encounter type: initial encounter Qualified Code(s): S01.01XA - Laceration without foreign body of scalp, initial encounter CAD (coronary artery disease) Qualifiers: Coronary Disease-Associated Artery/Lesion type: [place] artery [place] vs. transplanted heart: [place] heart Associated angina: without angina Qualified Code(s): I25.10 - Atherosclerotic heart disease of [place] coronary artery without angina pectoris Type 2 diabetes mellitus Qualifiers: Diabetes mellitus fci insulin use: without fci use Diabetes mellitus complication status: with kidney complications Diabetes mellitus complication detail: with chronic kidney disease Chronic kidney disease stage: stage 3 (moderate) Chronic kidney disease stage 3 subtype: stage 3b (GFR 30-44) Qualified Code(s): E11.22 - Type 2 diabetes mellitus with diabetic chronic kidney disease HTN (hypertension) Qualifiers: Hypertension type: primary hypertension Qualified Code(s): I10 - Essential (primary) hypertension - Discharge Information Instructions: 10 Things You Can Do to Manage Your COVID-19 Symptoms at Home - [facility] (12/29/2020), Understanding Your Risk for Falls, Laceration Care, Adult, [id number] Referrals: 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 Understanding that you are fully vaccinated, you should probably still isolate for 10 days. The x-rays of your right hip failed to demonstrate any acute abnormality so this is simply likely a bruise. The CT of your head failed to demonstrate any significant abnormalities except for the large laceration of the scalp which we repaired using sutures. The sutures will need to be removed in 7 to 10 days. Please apply light coating of triple antibiotic ointment to the wound daily. This will keep it moisturized and prevent infection. The sutures may be removed at your physician's office. Sepsis Event Note (ED) - Evaluation Sepsis Screening Result: No Definite Risk - Focused Exam Vital Signs: Vital Signs Temp Pulse Resp BP Pulse Ox 04/24/21 22:15 36.6 C 78 24 H 177/91 H 93 L - Problem List & Annotations (1) Chronic systolic heart failure SNOMED Code(s): 055665704 Code(s): I50.22 - CHRONIC SYSTOLIC (CONGESTIVE) HEART FAILURE Status: Chronic Priority: High Current Visit: Yes (2) History of atrial fibrillation SNOMED Code(s): 011835263 Code(s): Z86.79 - PERSONAL HISTORY OF OTHER DISEASES OF THE CIRCULATORY SYSTEM Status: Chronic Priority: High Current Visit: Yes (3) Type 2 diabetes mellitus SNOMED Code(s): 69927757 Code(s): E11.9 - TYPE 2 DIABETES MELLITUS WITHOUT COMPLICATIONS Status: Chronic Priority: High Current Visit: Yes Qualifiers: 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 Diabetes mellitus complication status: with kidney complications Diabetes mellitus complication detail: with chronic kidney disease Chronic kidney disease stage: stage 3 (moderate) Chronic kidney disease stage 3 subtype: stage 3b (GFR 30- 44) Qualified Code(s): E11.22 - Type 2 diabetes mellitus with diabetic chronic kidney disease; N18.32 - Chronic kidney disease, stage 3b (4) CAD (coronary artery disease) SNOMED Code(s): 97486549 Code(s): I25.10 - ATHSCL HEART DISEASE OF [place] CORONARY ARTERY W/O ANG PCTRS Status: Chronic Priority: High Current Visit: Yes Qualifiers: Coronary Disease-Associated Artery/Lesion type: [place] artery [place] vs. transplanted heart: [place] heart Associated angina: without angina Qualified Code(s): I25.10 - Atherosclerotic heart disease of [place] coronary artery without angina pectoris (5) HTN (hypertension) SNOMED Code(s): 08496871 Code(s): I10 - ESSENTIAL (PRIMARY) HYPERTENSION Status: Chronic Priority: High Current Visit: Yes Qualifiers: Hypertension type: primary hypertension Qualified Code(s): I10 - Essential (primary) hypertension (6) COVID-19 SNOMED Code(s): 696700838 Code(s): U07.1 - COVID-19 Status: Acute Priority: High Current Visit: Yes (7) Chronic anticoagulation SNOMED Code(s): 687023669 Code(s): Z79.01 - MANGLE CATCHER (CURRENT) USE OF ANTICOAGULANTS Status: Acute Priority: High Current Visit: Yes (8) Contusion of right hip, initial encounter SNOMED Code(s): 20489412 Code(s): S70.01XA - CONTUSION OF RIGHT HIP, INITIAL ENCOUNTER Status: Acute Priority: Medium Current Visit: Yes (9) Recurrent falls while walking SNOMED Code(s): 674941996, 226070917 Code(s): R29.6 - REPEATED FALLS Status: Chronic Priority: High Current Visit: Yes (10) Superficial laceration of scalp SNOMED Code(s): 756943876 Code(s): S01.01XA - LACERATION WITHOUT FOREIGN BODY OF SCALP, INITIAL ENCOUNTER Status: Acute Priority: Medium Current Visit: Yes Qualifiers: Encounter type: initial encounter Qualified Code(s): S01.01XA - Laceration without foreign body of scalp, initial encounter - Problem List Review Problem List Initiated/Reviewed/Updated: Yes - My Orders Last 24 Hours: My Active Orders 04/24/21 22:18 Isolation [COMM] Stat 04/24/21 23:09 Hip Min 2V or 3V w Pelvis Rt [CR] Stat 04/24/21 23:26 Vaccine to be Administered/Admin Charge [RC] ASDIRECTED - Assessment/Plan Last 24 Hours: My Active Orders 04/24/21 22:18 Isolation [COMM] Stat 04/24/21 23:09 Hip Min 2V or 3V w Pelvis Rt [CR] Stat 04/24/21 23:26 Vaccine to be Administered/Admin Charge [RC] ASDIRECTED
[2021-04-25] MEDS ORDERED: Bacitracin Oint 1 GM U/D Packet TOP ONE
--- NOTE | 2021-04-25 00:08 | CRLCR ---
For Patients: As a result of the Century Cures Act, medical imaging exams and procedure reports are released immediately into your electronic medical record. You may view this report before your referring provider. If you have questions, please contact your health care provider. Indication: Fall, pain Technique: Three views Comparison: Right hip 05/28/2020 Findings: Bones: Alignment is normal. No fractures or bone lesions. Joint spaces: Superior hip joint space narrowing consistent with osteoarthritis. Soft tissues: Atherosclerosis. Dictated by Jonathan Palencia MD @ 04/25/2021 12:06:40 AM (Electronically Signed)
== END 2021-04-25 00:15 | disposition home or self-care (01) ==
LOC: JP.ED 22:14
DX: S70.01XA Contusion of right hip, initial encounter (principal); U07.1 COVID-19; I48.91 Unspecified atrial fibrillation; I50.22 Chronic systolic (congestive) heart failure; E11.9 Type 2 diabetes mellitus without complications; I10 Essential (primary) hypertension; E78.00 Pure hypercholesterolemia, unspecified; I25.2 Old myocardial infarction; I25.10 Atherosclerotic heart disease of native coronary artery without angina pectoris; Z23 Encounter for immunization; Z88.8 Allergy status to other drugs, medicaments and biological substances; Z79.84 Long term (current) use of oral hypoglycemic drugs; Z79.01 Long term (current) use of anticoagulants; Z87.891 Personal history of nicotine dependence; W19.XXXA Unspecified fall, initial encounter; Y93.01 Activity, walking, marching and hiking
CPT/HCPCS: 0241U; 12001; 36415; 70450; 73502; 80053; 81001; 85025; 85610; 85730; 90471; 90715; 99285

== ENCOUNTER 2021-10-23 23:27 | Emergency (ER) | payer OTHER | END 2021-10-24 01:09 | disposition home or self-care (01) | LOC: JP.ED 23:27 | DX: R53.1 Weakness (principal); R29.6 Repeated falls; I25.10 Atherosclerotic heart disease of native coronary artery without angina pectoris; E78.00 Pure hypercholesterolemia, unspecified; I25.2 Old myocardial infarction; I10 Essential (primary) hypertension; E11.9 Type 2 diabetes mellitus without complications; Z88.8 Allergy status to other drugs, medicaments and biological substances; Z79.899 Other long term (current) drug therapy; Z79.84 Long term (current) use of oral hypoglycemic drugs; Z79.82 Long term (current) use of aspirin; Z79.01 Long term (current) use of anticoagulants | CPT/HCPCS: 36415; 71045; 80053; 81001; 83605; 84443; 85025; 99282; 99285-25 ==

== ENCOUNTER 2021-10-26 22:05 | Emergency (ER) | payer OTHER ==
[2021-10-26] MEDS ORDERED: Sodium Chloride 0.9% 10 ML Syringe FLUSH PRN (22:16)
[2021-10-26] MEDS ORDERED: HYDROmorphone 0.5 MG/0.5 ML Syringe IVPUSH ONE (22:16)
[2021-10-27] MEDS ORDERED: HYDROmorphone 0.5 MG/0.5 ML Syringe IVPUSH ONE (00:59)
== END 2021-10-27 08:42 ==
LOC: JP.ED 22:05
DX: S72.001A Fracture of unspecified part of neck of right femur, initial encounter for closed fracture (principal); I25.10 Atherosclerotic heart disease of native coronary artery without angina pectoris; E11.22 Type 2 diabetes mellitus with diabetic chronic kidney disease; I10 Essential (primary) hypertension; I48.91 Unspecified atrial fibrillation; E78.00 Pure hypercholesterolemia, unspecified; I25.2 Old myocardial infarction; Z79.899 Other long term (current) drug therapy; Z79.82 Long term (current) use of aspirin; Z79.01 Long term (current) use of anticoagulants; Z79.84 Long term (current) use of oral hypoglycemic drugs; Z88.8 Allergy status to other drugs, medicaments and biological substances; Z20.822 Contact with and (suspected) exposure to COVID-19; W01.0XXA Fall on same level from slipping, tripping and stumbling without subsequent striking against object, initial encounter
CPT/HCPCS: 36415; 51702; 70450; 73501; 80053; 84484; 85025; 85610; 85730; 87635; 93005; 93010; 96374; 96376; 99284; 99285; J1170; J3490; U0002

== ENCOUNTER 2022-07-05 10:16 | Observation (INO) | payer OTHER, MEDICARE ==
[2022-07-05] MEDS ORDERED: Morphine 2 MG/ML SYRINGE IVPUSH ONE (11:33)
[2022-07-05] MEDS ORDERED: Sodium Chloride 0.9% 10 ML Syringe FLUSH PRN (14:20)
[2022-07-05] MEDS ORDERED: LORazepam ORAL Concentrate 1MG/0.5ML U/D BUCCAL PRN (14:20)
[2022-07-05] MEDS ORDERED: Ondansetron 4 MG/2 ML SDV IV PRN (14:20)
[2022-07-05] MEDS ORDERED: Morphine 10 MG/0.5 ML Oral Syringe PO PRN (14:20)
[2022-07-06] MEDS ORDERED: Hypromellose 0.3% Ophth Soln 15 ML Bottle EYEBOTH PRN (11:03)
== END 2022-07-06 16:20 | disposition expired ==
LOC: JP.ED 10:16 → JP.MS 13:30
PROVIDERS: ADMIT Hospitalist; ATTEND Hospitalist
DX: J18.9 Pneumonia, unspecified organism (principal); J96.21 Acute and chronic respiratory failure with hypoxia; I21.09 ST elevation (STEMI) myocardial infarction involving other coronary artery of anterior wall; I10 Essential (primary) hypertension; E78.00 Pure hypercholesterolemia, unspecified; I48.91 Unspecified atrial fibrillation; I25.10 Atherosclerotic heart disease of native coronary artery without angina pectoris; M19.90 Unspecified osteoarthritis, unspecified site; E11.9 Type 2 diabetes mellitus without complications; I25.2 Old myocardial infarction; Z79.899 Other long term (current) drug therapy; Z51.5 Encounter for palliative care; Z79.84 Long term (current) use of oral hypoglycemic drugs; Z79.82 Long term (current) use of aspirin; Z88.8 Allergy status to other drugs, medicaments and biological substances; Z98.890 Other specified postprocedural states; Z96.659 Presence of unspecified artificial knee joint; Z20.822 Contact with and (suspected) exposure to COVID-19
CPT/HCPCS: 71045; 71045-26; 96374; 99223; 99238; 99285; 99285-25; A9270-GY; G0378; J2270; U0002